=== PATIENT | male | born 1985 | race Caucasian/White ===

== ENCOUNTER 2018-08-05 14:46 | Emergency (ER) | payer OTHER ==
[2018-08-05 15:10] VITALS: BP 129/85
--- NOTE | 2018-08-05 16:25 | UC ---
General HPI - HPI Summary HPI Summary: Pt. is a 33 y.o male presenting to the requesting medication refill. Pt. states that he missed too many apts. with his PCP and was discharged from their practice. Pt. states he is currently on prozac and neurontin. Pt. states he sees a counselor at [facility]. Pt. denies SI or HI. He lives with his girlfriend and states he has a good support system. Pt. states he has about 2 days of his medications left. Pt. also states that he recently stopped taking antabuse about one month ago. Pt. states he did drink last night and is concerned he is going to go down that path again. Pt. is requesting to be restarted on antabuse. Pt. also notes he use to be a benzo for anxiety but has not taken any for a few years. Sxs are mild in severity. No current modifying factors. - History of Current Complaint Chief Complaint: UCMedRefill Stated Complaint: PRESCRIPTION REFILLS Time Seen by Provider: 08/05/18 15:33 Hx Obtained From: Patient Pain Intensity: 0 - Allergy/Home Medications Allergies/Adverse Reactions: Allergies Allergy/AdvReac Type Severity Reaction Status Date / Time cefaclor [From [facility]] Allergy Anaphylatic Verified 08/05/18 15:11 Shock Penicillins Allergy Anaphylatic Verified 08/05/18 15:11 Shock Home Medications: Home Medications Disulfiram TAB* [Antabuse 250 MG TAB*] 250 mg PO DAILY 08/05/18 [History Confirmed 08/05/18] Gabapentin CAP(*) [Neurontin 300 CAP(*)] 600 mg PO TID 08/05/18 [History Confirmed 08/05/18] PMH/Surg Hx/FS Hx/Imm Hx Previously Healthy: Yes Psychological History: Anxiety, Depression - Surgical History Surgical History: Yes Surgery Procedure, Year, and Place: [place] Teeth Extraction - Family History Known Family History: Positive: Other - noncontributory - Social History Occupation: Unemployed Lives: With Family Alcohol Use: None Substance Use Type: Marijuana Substance Use Comment - Amount & Last Used: History of using heroin, opiates Smoking Status (MU): Light Every Day Tobacco Smoker - Immunization History Most Recent Influenza Vaccination: Unsure Most Recent Tetanus Shot: Unsure Most Recent Pneumonia Vaccination: Never Review of Systems Psychological: Negative, Other - Negative SI or HI All Other Systems Reviewed And Are Negative: Yes Physical Exam Triage Information Reviewed: Yes Appearance: Well-Appearing - Pt. sittin in chair in NAD. Vital Signs: Initial Vital Signs Temp 98.4 F 08/05/18 15:06 Pulse 70 08/05/18 15:06 Resp 16 08/05/18 15:06 BP 129/85 08/05/18 15:06 Pulse Ox 100 08/05/18 15:06 Vital Signs Reviewed: Yes Eyes: Positive: Conjunctiva Clear Neck: Positive: Supple Musculoskeletal Exam: Normal Neurological Exam: Normal Psychological Exam: Normal Skin Exam: Normal Course/Dx - Course Course Of Treatment: Pt. presenting for medication refill. He denies SI or HI. Case discussed with Dr. Mendoza who agrees with week refill for prozac, gabapentin, and antabuse. To call the Clinic today to schedule close follow-up appointment for further prescriptions. To return to urgent care noted to the ER symptoms change or worsen. Patient understands and agrees with plan. - Differential Dx - Multi-Symptom Provider Diagnoses: Medication refill Discharge - Sign-Out/Discharge Documenting (check all that apply): Patient Departure All imaging exams completed and their final reports reviewed: No Studies - Discharge Plan Condition: Good Disposition: HOME Prescriptions: Disulfiram [Antabuse] 500 mg PO DAILY #7 tablet FLUoxetine CAP* [Prozac CAP*] 20 mg PO DAILY #14 cap Gabapentin 600 mg PO TID #21 tablet Patient Education Materials: Medicine Refill (ED) Referrals: [facility] [Outside] Additional Instructions: Call the [facility] today to schedule a close follow up appointment Follow up with your counselor as scheduled Medication as directed Return to UC or go to ER if symptoms change or worsen - Billing Disposition and Condition Condition: GOOD Disposition: Home
== END 2018-08-05 16:19 | disposition home or self-care (01) ==
LOC: UCEAST 14:46
DX: F41.9 Anxiety disorder, unspecified (principal); F32.9 Major depressive disorder, single episode, unspecified; Z76.0 Encounter for issue of repeat prescription; Z88.1 Allergy status to other antibiotic agents; Z88.0 Allergy status to penicillin; F17.200 Nicotine dependence, unspecified, uncomplicated
CPT/HCPCS: 99212; G0463

== ENCOUNTER 2018-08-13 05:41 | Inpatient (IN) | payer OTHER ==
--- NOTE | 2018-08-13 05:55 | ED ---
Psychiatric Complaint - HPI Summary HPI Summary: This patient is a 33 year old M brought in by EMS to [facility] accompanied by his girlfriend after he was experiencing some hallucinations. The patient is answering questions slowly and is refusing to answer some. He denies SI/HI. His girlfriend reports that at 0030 she woke up to the patient talking in the other room and when she asked who he was talking to he responded her. She simply went back to bed. Then at 0430 the patient woke up his girlfriend stating that he needed help because he was having auditory and visual hallucinations. Pt has a history of alcoholism, depression, SI, and substance abuse. He is trying to stop drinking and his last drink was a week ago. Pt is on multiple medications. - History Of Current Complaint Time Seen by Provider: 08/13/18 05:53 Hx Obtained From: Patient, Family/Recreation Attendant Supervisor - S/O Onset/Duration: Still Present Timing: Constant Severity Initially: Moderate Severity Currently: Moderate Character: Stuporous Related History: Positive For: Prior Psychiatric Issues, Admissions Related To Substance Abuse Has Suicidal: Denies: Thoughts, With A Plan Has Homicidal: Denies: Thoughts, With A Plan - Allergies/Home Medications Allergies/Adverse Reactions: Allergies Allergy/AdvReac Type Severity Reaction Status Date / Time [facility] Allergy Anaphylatic Verified 08/05/18 15:11 Shock Penicillins Allergy Anaphylatic Verified 08/05/18 15:11 Shock PMH/Surg Hx/FS Hx/Imm Hx Cardiovascular History: Denies: Hx Hypotension GI History: Reports: Other GI Disorders - Acid reflux EENT History: Denies: Hx Deafness Neurological History: Denies: Hx CVA, Hx Dementia Psychiatric History: Reports: Hx Anxiety, Hx Attention Deficit Hyperactivity Disorder, Hx Depression, Hx Panic Disorder, Hx Community Mental Health Tx, Hx Substance Abuse Denies: Hx Eating Disorder, Hx Inpatient Treatment, Hx Suicide Attempt, Hx of Violent Episodes Against Others - Surgical History Surgery Procedure, Year, and Place: [place] Teeth Extraction Infectious Disease History: Denies: Traveled Outside the [place] in Last 30 Days - Family History Known Family History: Positive: Other - noncontributory, Non-Contributory Negative: Respiratory Disease, Seizure Disorder - Social History Alcohol Use: None Substance Use Type: Reports: Marijuana Substance Use Comment - Amount & Last Used: History of using heroin, opiates Smoking Status (MU): Light Every Day Tobacco Smoker Review of Systems Negative: Fever Eyes: Other - hallucinations. Positive: Other - hallucinations. All Other Systems Reviewed And Are Negative: Yes Physical Exam - Summary Physical Exam Summary: VITAL SIGNS: Reviewed. GENERAL: Patient is a well-developed and nourished male who is lying comfortable in the stretcher. Patient is not in any acute respiratory distress. HEAD AND FACE: No signs of trauma. No ecchymosis, hematomas or skull depressions. No sinus tenderness. EYES: PERRLA, EOMI x 2, No injected conjunctiva, no nystagmus. EARS: Hearing grossly intact. Ear canals and tympanic membranes are within normal limits. MOUTH: Oropharynx within normal limits. NECK: Supple, trachea is midline, no adenopathy, no JVD, no carotid bruit, no c- spine tenderness, neck with full ROM. CHEST: Symmetric, no tenderness at palpation LUNGS: Clear to auscultation bilaterally. No wheezing or crackles. CVS: Regular rate and rhythm, S1 and S2 present, no murmurs or gallops appreciated. ABDOMEN: Soft, non-tender. No signs of distention. No rebound no guarding, and no masses palpated. Bowel sounds are normal. EXTREMITIES: FROM in all major joints, no edema, no cyanosis or clubbing. NEURO: Alert and oriented x 3. No acute neurological deficits. Speech is normal and follows commands. He answers slowly and he does not answer all questions SKIN: Dry and warm Triage Information Reviewed: Yes Vital Signs Reviewed: Yes Diagnostics - Laboratory Result Diagrams: 08/13/18 06:13 08/13/18 06:13 Lab Statement: Any lab studies that have been ordered have been reviewed, and results considered in the medical decision making process. - EKG 0558 Cardiac Rate: Tachycardia EKG Rhythm: Sinus Tachycardia - at 103 BPM Summary of EKG Findings: Normal axis. Normal interval. No ischemic changes Re-Evaluation - Re-Evaluation First Eval Re-Evaluation Time: 06:43 Comment: Pt's father is in the ED and states the patient took his 90 pills of gabapentin in the last 3 days. Course/Dx - Course Assessment/Plan: This patient is a 33 year old M brought in by EMS to [facility] accompanied by his girlfriend after he was experiencing some hallucinations. The patient is answering questions slowly and is refusing to answer some. He denies SI/HI. His girlfriend reports that at 0030 she woke up to the patient talking in the other room and when she asked who he was talking to he responded her. She simply went back to bed. Then at 0430 the patient woke up his girlfriend stating that he needed help because he was having auditory and visual hallucinations. Pt has a history of alcoholism, depression, SI, and substance abuse. He is trying to stop drinking and his last drink was a week ago. Pt is on multiple medications. An EKG reveals NSR 103. Normal axis. Normal interval. No ischemic changes. Bloodwork obtained. This patient will be signed out to Dr. Crespo awaiting toxicology and dispo. - Differential Dx/Clinical Impression Provider Diagnosis: Substance abuse Discharge - Sign-Out/Discharge Documenting (check all that apply): Sign-Out Patient Signing out patient TO: Bandar Crespo - Discharge Plan Referrals: Bandar Polanco MD [Primary Care Provider] - - Attestation Statements Document Initiated by Scribe: Yes Documenting Scribe: Avinash Clement Provider For Whom Nraayane is Documenting (Include Credential): Ariadna Milton MD Scribe Attestation: Avinash Santos, scribed for Ariadna Milton MD on 08/13/18 at 0650.
[2018-08-13] MEDS ORDERED: NS 0.9% 1000 ML* 1,000 ML IV ONE (05:58)
[2018-08-13] MEDS ORDERED: Mouth Piece, Nicotine* 1 EACH CARTRIDGE INH SCH (06:09)
[2018-08-13 06:22] LABS: ABS Basophils 0.1 10^3/ul (0-0.2); ABS Eosinophils 0.1 10^3/ul (0-0.6); ABS Lymphocytes 1.8 10^3/ul (1.0-4.8); ABS Monocytes 0.8 10^3/ul (0-0.8); ABS Neutrophils 5.2 10^3/ul (1.5-7.7); ABS Nucleated RBC 0 10^3/ul; Eosinophil % 0.9 % (0-6); Hematocrit 42 % (42-52); Hemoglobin 13.9 g/dl (14.0-18.0); Lymphocyte % 22.5 % (25-47); Mean Corpuscular HGB Conc 34 g/dl (31-36); Mean Corpuscular Hemoglobin 29 pg (27-31); Mean Corpuscular Volume 85 fL (80-94); Mean Platelet Volume 7.1 fL (7.4-10.4); Nucleated Red Blood Cells % 0.1; Platelet Count 254 10^3/ul (150-450); Red Blood Count 4.89 10^6/ul (4.00-5.40); Red Cell Distribution Width 14 % (10.5-15); White Blood Count 7.9 10^3/ul (3.5-10.8)
[2018-08-13 06:37] LABS: EGFR Non-African American 89.7 (>60)
[2018-08-13 06:49] LABS: Urine Appearance Clear; Urine Blood Negative (Negative); Urine Color Straw; Urine Ketones Negative (Negative); Urine Protein Negative (Negative); Urine Specific Gravity 1.003 (1.010-1.030); Urine Urobilinogen Negative (Negative)
--- NOTE | 2018-08-13 07:10 | ED ---
Progress - Progress Note Progress Note: This pt was signed out by Dr. Milton at shift change, pending disposition, awaiting toxicology screen. Pt is a 33 y/o male presenting to [facility] for hallucinations today. Pt states having a hard time urinating and numbness in hands. Pt also currently urine incontinent. Pt admits to taking more than prescribed Gabapentin in the past 3 days. Pt's prescription was filled on 08/08/18. Pt's father reports pt had 90 tablets of 600 mg Gabapentin within the last 3 days. Pt notes he has NOT taken any gabapentin today. Physical Exam= VITAL SIGNS: Reviewed. GENERAL: Patient is a well-developed and nourished male who is lying comfortable in the stretcher. Patient is not in any acute respiratory distress. HEAD AND FACE: No signs of trauma. No ecchymosis, hematomas or skull depressions. No sinus tenderness. EYES: PERRLA, EOMI x 2, No injected conjunctiva, no nystagmus. EARS: Hearing grossly intact. Ear canals and tympanic membranes are within normal limits. MOUTH: Oropharynx within normal limits. NECK: Supple, trachea is midline, no adenopathy, no JVD, no carotid bruit, no c- spine tenderness, neck with full ROM. CHEST: Symmetric, no tenderness at palpation LUNGS: Clear to auscultation bilaterally. No wheezing or crackles. CVS: Tachycardic rate and regular rhythm, S1 and S2 present, no murmurs or gallops appreciated. ABDOMEN: Soft, non-tender. No signs of distention. No rebound, no guarding, and no masses palpated. Bowel sounds are normal. He is urine incontinent. EXTREMITIES: FROM in all major joints, no edema, no cyanosis or clubbing. NEURO: Alert and oriented x 3. Speech is normal and follows commands. Pt with ataxia. He has movement disorder, he is slow with movement. Pt with auditory and visual hallucinations. SKIN: Dry and warm GCS: [address], as read by radiologist IMPRESSION: No acute intracranial pathology Dr. Crespo has reviewed this report. EKG at 08:49 Rate: Normal at 93 bpm Rhythm: Normal Sinus No ST elevations. Re-Evaluation - Re-Evaluation First Eval Re-Evaluation Time: 07:37 Comment: Pt reports he has visual hallucinations. He also states having a hard time urinating and numb hands. He notes he hasn't taken any gabapentin today. Pt admits to taking more than prescribed gabapentin in the past 3 days. Pt currently with urine incontinence. Course/Dx - Course Course Of Treatment: Patient is a 33-year-old male who was signed out by Dr. Milton. He reports that this patient came in with the chief complaint of altered mental status. He has auditory and visual hallucinations and the patient is aware that he is hallucinating. He also had urinary incontinence 1 today. He also has been taking gabapentin for the last 3 days but the amount is unknown. The patient is awaiting for a urinalysis and urine toxicology. Dr. Milton recommends for the patient to be admitted to the hospital services for further workup and management. Test results without any significant abnormality except for hemoglobin 13.9, glucose of 120, CPK 303 and urine toxicology positive for marijuana. Patient has past medical history significant for substance-induced mood disorder, alcohol use disorder, history of cocaine use disorder, history of opiate disorder, cannabinoids use disorder, anxiety and panic disorders. Head CT impression: No acute intracranial pathology. Discussed the case with poison control and they recommend a second EKG since the first one had a borderline QTC. Second EKG shows normal QTC. The recommend for the patient to be observed, be given magnesium sulfate indicated if QTC is more than 500, and benzodiazepines for agitation. The patient also continues to be hydrated. At this point I discussed my physical exam, findings and test results with Dr. Walker, hospitalist, who accepted the patient for admission. The patient is hemodynamically stable. - Diagnoses Provider Diagnoses: Substance abuse, Gabapentin overdose - Provider Notifications Discussed Care Of Patient With: Pita Walker - hospitalist Time Discussed With Above Provider: 09:05 Instructed by Provider To: Admit As Inpatient Discharge - Sign-Out/Discharge Documenting (check all that apply): Patient Departure - Admit to [facility], Receiving Sign-Out Receiving patient FROM: Ariadna Milton - Discharge Plan Condition: Stable Disposition: ADMITTED TO [facility] - Billing Disposition and Condition Condition: STABLE Disposition: Admitted to [facility] - Attestation Statements Document Initiated by Scribe: Yes Documenting Scribe: Teresa Downs Provider For Whom Scribe is Documenting (Include Credential): Bandar Crespo MD Scribe Attestation: ITeresa, scribed for Bandar Crespo MD on 08/13/18 at 1830. Scribe Documentation Reviewed: Yes Provider Attestation: The documentation as recorded by the scribe, Teresa Downs accurately reflects the service I personally performed and the decisions made by me, Bandar Crespo MD
[2018-08-13] MEDS ORDERED: Acetaminophen TAB* 325 MG PO PRN (11:04)
[2018-08-13] MEDS ORDERED: LORazepam INJ* 2 MG/ML 1 ML VIAL IV PUSH PRN (11:05)
[2018-08-13 11:17] LABS: ABS Basophils 0.1 10^3/ul (0-0.2); ABS Eosinophils 0 10^3/ul (0-0.6); ABS Monocytes 1.1 10^3/ul (0-0.8); ABS Neutrophils 7.7 10^3/ul (1.5-7.7); ABS Nucleated RBC 0 10^3/ul; Eosinophil % 0.4 % (0-6); Hematocrit 42 % (42-52); Hemoglobin 13.9 g/dl (14.0-18.0); Lymphocyte % 18.6 % (25-47); Mean Corpuscular HGB Conc 33 g/dl (31-36); Mean Corpuscular Hemoglobin 29 pg (27-31); Mean Corpuscular Volume 87 fL (80-94); Mean Platelet Volume 7.6 fL (7.4-10.4); Nucleated Red Blood Cells % 0.1; Platelet Count 269 10^3/ul (150-450); Red Blood Count 4.86 10^6/ul (4.00-5.40); Red Cell Distribution Width 14 % (10.5-15)
[2018-08-13 11:36] LABS: EGFR Non-African American 86.6 (>60)
[2018-08-13] MEDS: NS 0.9% 1000 ML* 1,000 ML IV SCH (12:35)
[2018-08-13] MEDS: clonazePAM TAB(*) 0.5 MG PO SCH ×2 (15:54→21:26)
--- NOTE | 2018-08-13 17:11 | HP ---
CC: Dr. Savana Neumann, [facility]; Dr. Avila; Dr. Lin * HISTORY AND PHYSICAL: DATE OF ADMISSION: 08/13/18 TIME OF EVALUATION: 10:50 a.m. CONSULTING FORENSIC CHEMIST: Dr. Avila. CONSULTING NEUROLOGIST: Dr. Lin. CHIEF COMPLAINT: "He is hallucinating" as per girlfriend. HISTORY OF PRESENT ILLNESS: Mr. Wells is a 33-year-old male with past medical history of alcohol abuse, anxiety, depressive disorder, who was brought into the emergency room by ambulance due to concerns with hallucinations and lethargy. The patient was recently seen at the [facility] on 08/08/[address] Neumann. As per her report, the patient had been discharged from Internal Medicine due to no shows. He presented to [facility] for depression and anxiety and he was on fluoxetine and gabapentin at that time and he had gotten them refilled at urgent care last week and was referred to [facility] to reestablish care. The patient also has a history of alcoholism, which has been well treated with Antabuse and as per her note, he has been sober for 2 years. On that visit, he was prescribed disulfiram, gabapentin, bupropion, clonazepam, and his fluoxetine was discontinued. On my initial conversation with the emergency room provider, the patient was described as lethargic, but able to answer questions and the only acute issue found in the ED was mild prolongation of his QT interval. By the time the patient arrived to the medical floor, he sustained what was described as a tonic seizure and clinical assessment team was called. Most of the information is obtained from his father and girlfriend at bedside. Apparently, since his visit to the [facility] on 08/08/18, the patient picked up all his medications and was taking more gabapentin than prescribed. Five days ago, he received a 90-tablet supply and per girlfriend he must have 5 or 10 left at home. The father describes that the patient was feeling "great" and he attributed that to gabapentin and kept taking more than what he was prescribed. His girlfriend states that last night around midnight she woke up and noticed that the patient who he was talking to, he answered and seemed to be okay. She woke up again at 4:30 and the patient was telling her that he needed help because he was having auditory and visual hallucinations. The patient did not require Ativan. His seizure was self-limited and he was regaining consciousness. The plan is for him to be transferred to the intensive care unit now to be seen by Dr. Avila and Dr. Lin. PAST MEDICAL HISTORY: 1. Prior history of alcohol abuse. 2. Anxiety. 3. Depressive disorder. MEDICATION LIST: 1. Wellbutrin SR 150 mg p.o. daily. 2. Clonazepam 0.25 mg p.o. t.i.d. as needed for anxiety. 3. Disulfiram 250 mg p.o. daily. 4. Gabapentin 600 mg p.o. t.i.d. ALLERGIES: The patient had anaphylaxis with CEPHALOSPORINS and PENICILLINS, CLINDAMYCIN. FAMILY HISTORY: Positive for depression and alcohol abuse. SOCIAL HISTORY: The patient is a smoker, 8 to 10 cigarettes a day. History of alcohol abuse, but he quit drinking 2 years ago. He states that he occasionally smokes marijuana, but denies smoking spice or any other drugs. The patient has lost his job a couple weeks ago as he could not contain insubordination and this has been an added stressor. Surrogate decision maker is his father, Jerry Wells, phone number is [phone]. REVIEW OF SYSTEMS: I am unable to obtain from the patient at this time due to his lethargy. PHYSICAL EXAMINATION GENERAL: The patient is a young gentleman, lying in bed, in no acute distress. VITAL SIGNS: Temperature 98.4, heart rate is 102, respiratory rate is 14, oxygen saturation 97% on room air, blood pressure is 135/90. HEENT: Pupils are equal and reactive to light. Moist mucous membranes. CHEST: Breath sounds present bilaterally with no added sounds. CVS: Normal S1, S2. Regular rate and rhythm. ABDOMEN: Soft. Bowel sounds are present. EXTREMITIES: No edema. NEURO: The patient is lethargic, but arousable to voice, oriented to self and place. He is able to move all 4 extremities. Face is symmetric. DIAGNOSTIC STUDIES/LAB DATA: The patient had a CBC that showed WBC of 7.9, hemoglobin of 13.9, hematocrit of 42, platelets of 254. Chemistry showed a sodium of 141, potassium of 3.9, chloride of 107, bicarb of 28, BUN of 14, creatinine of 0.97, glucose of 108, lactic acid of 1.2, calcium of 9.8. LFTs were normal. CPK was 303. Urinalysis was negative. Urine toxicology was positive for cannabinoids only. CT of the brain showed no acute intracranial pathology. EKG done 08/13/18 at 5:58 a.m. showed sinus tachycardia at 103 beats per minute with nonspecific intraventricular conduction delay and his QTc was 500. There is no prior EKG to compare. Subsequent EKGs showed improvement of his QTc and on the last one, his QTc was 478. ASSESSMENT AND PLAN: Mr. Wells is a 33-year-old male with past medical history of anxiety, depression, prior history of alcohol abuse, who was recently seen at the [facility] and received prescriptions of his new medications and has been taking higher doses of gabapentin over the weekend and now presents with lethargy and seizure. 1. Gabapentin toxicity. The patient's mild QT prolongation and lethargy are likely related to accidental gabapentin overdose. The original plan was to provide supportive care and monitor his QT interval and wait for his mental status to improve, but now that the patient has sustained a seizure, the plan is to have him transferred to the intensive care unit. I did contact Poison Control and they feel that the seizure is likely not related to gabapentin. As the patient is also on Wellbutrin, we think it may be related to it. As per Dr. Neumann's note, the patient has been sober for 2 years and when he is more awake, we will clarify, but at this point, he does not seem to be withdrawing from alcohol. He will be placed on neurological checks every 2 hours. He will have seizure precautions and he will have a stat EEG and will be seen in consultation by Neurology. I also requested Critical Care evaluation with Dr. Avila. For now, we are going to hold all his medications and he will need psychiatric evaluation when more stable as impulse control seems to be one of his issues. 2. DVT prophylaxis: The patient has a score of 1 on the DVT Prophylaxis Risk Assessment Guide and he will have SCDs. 3. Code status is full. TIME SPENT: Approximately 65 minutes of critical care time was spent to complete this admission, more than half of this time was spent [id number] with the patient and family and coordination of care. [id number]/[facility] #: [id number] [facility]PITALIsabel
--- NOTE | 2018-08-13 21:49 | CONS ---
CONSULTATION NOTE: DATE OF CONSULT: 08/13/18 CONSULTING PROVIDER: Pita Armas MD REASON FOR CONSULT: Seizure. CHIEF COMPLAINT: Hallucination. HISTORY OF PRESENT ILLNESS: Mr. 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 The patient presented with increased episodes of hallucination and lethargy. The patient was evaluated by Dr. Neumann on 08/08/18. The patient was diagnosed with depression and anxiety and was started on gabapentin , Wellbutrin, and clonazepam. He was taking fluoxetine but that was discontinued. According to Neetu, who is the patient's girlfriend, the patient had taken 30-day dosage of medication within 6 days. He has been averaging 6 to 10 clonazepam a day. He ran out of clonazepam last Sunday. He took all the doses of gabapentin 600 mg p.o. t.i.d. He also stated that he probably took more than 5 Wellbutrin of 150 mg p.o. daily. When questioned why he consumed these medications, the patient stated that he wanted to have a good time and not wanting to feel bad anymore. The patient also stated that he was a black-out drinker. He was hospitalized before in an inpatient facility, although I do not find these records for severe depression in the past. At approximately 11 a.m. today, Christina was not feeling well. He was getting out of bed and wanted to leave the hospital. Nurse was supporting him. The patient got upset and told the nurse to not touch him. He then calmed down, sat at the edge of the bed and had a tonic seizure-like episode that lasted for approximately 30-60 seconds. The patient was confused thereafter. The patient did not have any tongue biting or incontinence. The patient did not hit his head. The patient was then transferred to the ICU for further monitoring. Currently, the patient is complaining of hallucination. He is seeing spiders all over the room. He denied any focal weakness. He denied any headaches, other visual disturbances. He sometimes hears voices. He denied any suicidal or homicidal ideation. The patient was treated with lorazepam at 1554 for agitation. The patient was started on clonazepam at 1554 to prevent any benzodiazepine withdrawal. PAST MEDICAL HISTORY: Alcohol abuse, tobacco abuse, anxiety, depression, polysubstance abuse. PAST SURGICAL HISTORY: He has no surgeries in the past. MEDICATIONS: 1. Wellbutrin 150 mg p.o. daily. 2. Clonazepam 0.25 mg p.o. t.i.d. as needed for anxiety. 3. Disulfiram 250 mg p.o. daily. 4. Gabapentin 600 mg p.o. t.i.d. ALLERGIES: CEPHALOSPORIN, PENICILLIN, and CLINDAMYCIN. FAMILY HISTORY: Positive for depression and alcohol use. There is no family history of stroke or seizures. SOCIAL HISTORY: The patient is a smoker, 8 to 10 cigarettes a day. He lives with his girlfriend. He is unemployed. He reportedly quit drinking 2 years ago. He does smoke marijuana occasionally. The patient also recently lost his friend and is not coping very well. Carlita is his current caregiver. The patient does have a 6-year-old daughter who does not currently live with him. He enjoys playing video games, listens to audio books, and likes to read and draw. He also recently adopted a puppy. REVIEW OF SYSTEMS: A 14-point review of systems was obtained, otherwise negative except for what was mentioned in the HPI. PHYSICAL EXAM: Vital Signs: Temperature of 97.5, heart rate of 96, respiratory rate of 18, oxygen saturation 98%, blood pressure 131/88. Slightly fidgety and irritated man, in no acute distress. He is resting comfortably. He requests that his girlfriend, Carlita, should be at bedside during the evaluation and interview. Head is atraumatic and normo-cephalic. Eyes: Conjunctivae/corneas are clear. Neck is supple and symmetrical with no carotid bruit. Lungs are clear to auscultation bilaterally. Cardiovascular: Regular rate and rhythm with normal S1, S2. Extremities: Normal range of motion with no cyanosis. Skin: No skin lesions or lacerations. Psych: Flat affect, depressed mood. He denied any suicidal or homicidal ideation. Neurological Examination: Awake, alert, oriented to person, place, time, and general circumstance. He does have hesitant speech and psychomotor slowing. Cranial Nerves: Normal confrontation testing. Pupils are mid range and reactive to light, normal consensual response. Extraocular muscles are intact. No ptosis. Sensation is intact in the forehead, cheeks, and jaw region bilaterally. No facial droop. Able to hear throughout the history process. Normal strength against shoulder shrug. Tongue is symmetrical and midline with no atrophy or fasciculation. Motor: No abnormal movements or pronator drift. He has got 5/ 5 strength in the upper and lower extremities. Reflexes 2+ in the brachioradialis, biceps, triceps, patella, ankle bilaterally. Plantar flexor/ flexor. Sensation is intact to light touch throughout. Normal vibration at the toes. Coordination: Normal rwtkzp-xi-iymb and rapid alternating movement. Gait was not assessed. DIAGNOSTIC STUDIES/LAB DATA: Labs, imaging, and other diagnostic testing: WBC of 11, hemoglobin of 13.9, hematocrit of 42. Sodium 143, potassium 3.7, chloride of 106, BUN of 12, creatinine of 1. Lactic acid 8.5, decreased to 0.9. Total creatine kinase is 294. TSH 1.33. Urinalysis negative. Urine tox screen positive for cannabinoids. CT head was completed on 08/13/18 that showed no evidence of any intracranial abnormality. I personally reviewed the study. He had an EEG that showed diffuse slowing in the mild to moderate range consistent with toxic metabolic encephalopathy. ASSESSMENT AND RECOMMENDATION: Mr. Jeffery Wells is a 33-year-old man with history of reported depression, anxiety, who overdosed on gabapentin and Wellbutrin and probably is having benzodiazepine withdrawal. The patient had a tonic seizure that was witnessed by staff members, lasted for 1 minute. He is now having trouble with visual and auditory hallucination. These manifestations are all most likely related to a psychiatric illness rather than a neurological problem. Reassuringly, he has no focal neurological deficits on examination. I do recommend starting him on a low- dose benzodiazepine such as clonazepam 0.5 mg twice daily for the next 2-3 days and to slowly wean him off the clonazepam to prevent any further seizures. Another possible cause for the seizure is Wellbutrin toxicity. Gabapentin is not the cause of the seizure but most likely can cause encephalopathy and myoclonus. I spent some time educating the patient regarding medication compliance. We also discussed smoking cessation. The patient will benefit from a psychiatric evaluation and possibly evaluation for inpatient psychiatry. Continue neuro checks every 4 hours. I am not quite sure if he really needs ICU at this point as he seems to have stabilized from the seizure standpoint. The patient does not have any evidence of an electrolyte imbalance or infectious etiology that may have contributed to his seizures. I have added a magnesium and phosphorous level to his lab to rule out any possible electrolyte imbalance contributing to his seizure but I doubt that this is the case. I discussed the above recommendations with the patient, Carlita, his girlfriend, and his father at bedside. TIME SPENT: I spent a total of 70 minutes and greater than 50% was spent directly reviewing the medical chart, obtaining history, examining the patient, education and counseling, and discussing the treatment plan and prognosis as mentioned above. [id number]/[facility] #: [id number] LV
--- NOTE | 2018-08-14 05:48 | CONS ---
PULMONARY CONSULTATION REPORT: DATE OF CONSULT: 08/13/18 CONSULTATION REQUESTED BY: Pita Marquez MD REASON FOR CONSULTATION: Evaluation for seizures and gabapentin overdose. HISTORY OF PRESENT ILLNESS: The patient is 33-year-old with history of alcohol abuse, polysubstance abuse, depressive disorder, schizophrenic disorder, who presents for evaluation of hallucinations and lethargy. The patient apparently overdosed on gabapentin. The patient apparently took 30 day dosage of medication within the past 6 days. He has taken all the dose of gabapentin 600 mg p.o. t.i.d., one month dose. He also overdosed on Klonopin averaging up to 6 to 10 clonazepam a day. He also probably took more than 5 Wellbutrin of 150 mg daily dose. The patient recently was [place] [facility] [place] he presented with hallucination and lethargy. He was diagnosed with depression and anxiety and was given gabapentin, Wellbutrin and Klonopin at that time. The patient reported taking the medication for recreational purposes. The patient reported not feeling well at approximately 11 a.m. He was on the floor when he was admitted for observation. He was upset and wanted to sign out. The patient became agitated and apparently had a tonic seizure like episode that lasted 30 to 60 seconds. He was confused thereafter. No urinary incontinence or tongue biting episode. No history of head trauma. He was subsequently transferred to intensive care unit for close monitoring. I was requested to evaluate the patient for further close monitoring of seizures and altered mental status. The patient was seen and examined at bedside. The patient reports feeling foggy. He also reported hallucinations. Reported seeing spiders all over the room. Denies weakness, headache, visual disturbances. He also reported auditory hallucinations. He denies suicidal or homicidal ideations to me, however, reported suicidal ideations to bedside RN. The patient subsequently was placed on one to one observation. He has received lorazepam for agitation while on the floor. The patient was also evaluated by Neurology. EKG was obtained, which did not reveal any evidence of prolonged QT. Apparently, the first EKG in emergency room did reveal evidence of prolonged QT. PAST MEDICAL HISTORY: Alcohol abuse, tobacco abuse, anxiety and depression, polysubstance abuse. PAST SURGICAL HISTORY: No surgeries in the past. MEDICATIONS: 1. Wellbutrin 150 mg p.o. daily. 2. Clonazepam 0.25 mg p.o. t.i.d. as needed for anxiety. 3. Disulfiram 250 mg p.o. daily. 4. Gabapentin 600 mg p.o. t.i.d. ALLERGIES: CEPHALOSPORIN, PENICILLIN, CLINDAMYCIN. FAMILY HISTORY: Positive for depression and alcohol use. SOCIAL HISTORY: The patient is a smoker, smokes about 8 to 10 cigarettes per day. He lives at home with girlfriend. He is unemployed. He quit drinking 2 years ago, smokes marijuana occasionally. REVIEW OF SYSTEMS: Limited, however, attempted 14-point review of systems negative other than mentioned in HPI. PHYSICAL EXAMINATION: The patient in no apparent distress. Temperature 98.8, pulse 88 beats per minute, respiratory rate 16 per minute, O2 sat 96% on room air, blood pressure 126/83. HEENT: Pupils are equal and reactive to light. Mucous membranes are moist. Lungs: Good air entry bilaterally. No crackles or wheezes. Cardiovascular: S1, S2 present, regular. Abdomen: Soft, nontender , nondistended. Bowel sounds are present. Extremities: Normal range of motion , no edema. DIAGNOSTIC STUDIES/LAB DATA: WBC count 11; hemoglobin 13.9; hematocrit 42; platelet count 269. Sodium 143, potassium 3.7, chloride 106, bicarb 23, BUN 12 , creatinine 1.0, lactic acid 0.9, LFTs within normal limits. Urine toxicology , cannabinoids positive, salicylates and acetaminophen within normal limits, alcohol within normal limits. CT of the brain did not show any acute abnormality. EKG showed sinus tachycardia with no significant QT prolongation. IMPRESSION/RECOMMENDATIONS: A 33-year-old with history of depression, psychiatric issues, admitted after overdose of gabapentin and Wellbutrin and is probably having benzodiazepine withdrawal. He is also on Klonopin at home. No evidence of seizures since his arrival in the ICU. He has been having hallucinations. No focal neuro deficits. Monitor closely for any EKG abnormalities. Monitor closely for seizures. Seizure precautions. The patient taking Wellbutrin that might have decreased seizure threshold. Will monitor closely in ICU. Neurology consultation appreciated. He will need psychiatric consultation as outpatient. Smoking cessation education was reinforced. Thank you for allowing me to participate in the care of your patient. I have discussed recommendations with Dr. Marquez. [id number]/[facility] #: [id number] [facility]
[2018-08-14 05:58] LABS: ABS Basophils 0 10^3/ul (0-0.2); ABS Eosinophils 0.1 10^3/ul (0-0.6); ABS Lymphocytes 1.7 10^3/ul (1.0-4.8); ABS Monocytes 0.9 10^3/ul (0-0.8); ABS Neutrophils 4.7 10^3/ul (1.5-7.7); ABS Nucleated RBC 0 10^3/ul; Eosinophil % 1.2 % (0-6); Hematocrit 33 % (42-52); Hemoglobin 11.6 g/dl (14.0-18.0); Lymphocyte % 23.2 % (25-47); Mean Corpuscular HGB Conc 35 g/dl (31-36); Mean Corpuscular Hemoglobin 30 pg (27-31); Mean Corpuscular Volume 85 fL (80-94); Mean Platelet Volume 7.3 fL (7.4-10.4); Nucleated Red Blood Cells % 0.1; Platelet Count 186 10^3/ul (150-450); Red Blood Count 3.91 10^6/ul (4.00-5.40); Red Cell Distribution Width 14 % (10.5-15); White Blood Count 7.4 10^3/ul (3.5-10.8)
[2018-08-14 06:17] LABS: EGFR Non-African American 107.4 (>60)
[2018-08-14] MEDS: clonazePAM TAB(*) 0.5 MG PO SCH ×3 (10:00→20:52)
[2018-08-14] MEDS: NS 0.9% 1000 ML* 1,000 ML IV SCH (10:16)
--- NOTE | 2018-08-14 10:24 | PN ---
Subjective Date of Service: 08/14/18 Interval History: Mr. Wells feels "terrible" today. His father and a 1:1 are in the room with him. He sits up and acknowledges me when I walk into the room. He does not recognize me until I remind him that I saw him in the office last week. I explained that when I saw him, he was very appropriate and stable from a mental health standpoint and both he and his father agree that he was doing well last week. In the office I refilled the gabapentin that he has been taking from some time, and I switched his fluoxetine to bupropion due to sexual side effects. He and his father attempt to piece the story together from the weekend and figure out how this overdose occurred, but Kenny struggles to remember much and cannot recall what caused him to take extra pills. He does not believe he was trying to harm himself, but he wanted to feel better. His dad thinks he doesnt have a good "thermostat" for when to stop taking pills once he starts to feel better, especially on a PRN basis. His father does say that Kenny's daughter's birthday was over the weekend, which may have provoked extra anxiety for Kenny having to be around people and having a lot of pressure to look good. Kenny complains of some nausea but is interested in advancing his diet a little today. He otherwise physically feels well and is "not sure" about how he feels from a mental health standpoint. Objective Active Medications: Acetaminophen (Tylenol Tab*) 650 mg PO Q6H PRN PRN Reason: pain/fever Clonazepam (Klonopin Tab(*)) 0.5 mg PO TID [facility] Last Admin: 08/14/18 10:00 Dose: 0.5 mg Device (Nicotine Mouth Piece*) 1 each INH .[facility] Sodium Chloride (Ns 0.9% 1000 Ml*) 1,000 mls @ 100 mls/hr IV PER RATE [facility] Last Admin: 08/13/18 12:35 Dose: 100 mls/hr Lorazepam (Ativan Inj*) 1 mg IV PUSH Q2H PRN PRN Reason: Seizure Last Admin: 08/13/18 15:54 Dose: 1 mg Nicotine (Nicotine Inhaler*) 10 mg INH Q2H PRN PRN Reason: CRAVING Vital Signs - 8 hr 08/14/18 08/14/18 03:50 10:00 Temperature 97.5 F Pulse Rate 83 Respiratory 14 16 Rate Blood Pressure 114/74 (mmHg) O2 Sat by Pulse 98 Oximetry Oxygen Devices in Use Now: None Appearance: drowsy but alerts to voice, tired appearing Eyes: No Scleral Icterus, - - pupils are 4mm b/l Ears/Nose/Mouth/Throat: NL Teeth, Lips, Gums, - - dry mucosa Neck: NL Appearance and Movements; NL JVP Respiratory: Symmetrical Chest Expansion and Respiratory Effort, Clear to Auscultation Cardiovascular: NL Sounds; No Murmurs; No JVD, RRR Abdominal: NL Sounds; No Tenderness; No Distention Lymphatic: No Cervical Adenopathy Extremities: No Edema Skin: No Rash or Ulcers Neurological: Alert and Oriented x 3, - - no tremor, no asterixis Result Diagrams: 08/14/18 05:26 08/14/18 05:26 Microbiology and Other Data: Microbiology 08/13/18 11:00 Nasal Screen MRSA (PCR) - Final Nasal Mrsa Not Detected Assess/Plan/Problems-Billing Assessment: This is a 33 year old man with history of anxiety, depression, alcohol abuse ( sober x 2 years on antabuse) who was seen by me last week, when his gabapentin was refilled (not a new medication), and his fluoxetine was switched to bupropion due to sexual side effects of SSRI, and PRN clonazepam was prescribed. He was admitted 08/13 with hallucinations and had a seizure after admission. His UA was positive for marijuana but negative for benzos. He does not think he was taking the benzos and does not think he was drinking alcohol. - Patient Problems (1) Toxic encephalopathy Current Visit: Yes Status: Acute Code(s): G92 - TOXIC ENCEPHALOPATHY SNOMED Code(s): 11942720 Comment: Improving Likely due to gabapentin and wellbutrin overdose He denies suicidal intention, but has poor recollection of taking so many pills He is clear enough for a psychiatric evaluation (2) Gabapentin overdose Current Visit: Yes Status: Acute Code(s): T42.6X1A - POISONING BY OTH ANTIEPLPTC AND SED-HYPNTC DRUGS, ACC, INIT SNOMED Code(s): 994512626 Comment: unclear intentions, especially since he has been on gabapentin for some time need repeat EKG today no neurologic effects at this time (3) Anxiety Current Visit: No Status: Suspected Priority: High Onset Date: 06/25/15 Code(s): F41.9 - ANXIETY DISORDER, UNSPECIFIED SNOMED Code(s): 36735727 Comment: clearly given his lack of impulse control, this is a poor choice of regimen for him I appreciate recommendations for alternative meds. He will need close follow up with psych and mental health. (4) Panic disorder Current Visit: No Status: Suspected Priority: High Onset Date: 06/25/15 Code(s): F41.0 - PANIC DISORDER [EPISODIC PAROXYSMAL ANXIETY] SNOMED Code(s): 929345227 Comment: again, benzos are a poor choice for him. I explained that he will not receive them any more. (5) Seizure Current Visit: Yes Status: Acute Code(s): R56.9 - UNSPECIFIED CONVULSIONS SNOMED Code(s): 83740395 Comment: likely due to wellbutrin overdose case discussed with Dr. Lin, no indication for further neurologic work up or therapy Status and Disposition: necessitates inpatient status for ongoing cardiac monitoring for gabapentin overdose, psychiatric evaluation. OOB today and advance diet as tolerated
[2018-08-14] MEDS ORDERED: Sodium Bicarbonate 8.4%* 50 ML SYRINGE IV ONE (12:07)
[2018-08-14] MEDS ORDERED: Potassium Chloride LIQUID* 20 MEQ PACKET PO ONE (12:26)
--- NOTE | 2018-08-14 14:48 | EEG ---
ELECTROENCEPHALOGRAPHY: DATE OF STUDY: 08/13/18 ORDERED BY: Dr. Pita Armas. INDICATION: Mr. Wells is a 33-year-old man who overdosed on gabapentin, Wellbutrin, and ran out of Klonopin, who presented with increased confusion and an episode of seizure. This EEG was ordered to evaluate for epileptiform abnormalities. MEDICATIONS: 1. Tylenol. 2. Ativan. 3. Nicotine inhaler. CLINICAL STATE: Awake. REPORT: The background lacked organization with clearly defined anterior-posterior voltage and frequ ency gradients. There was an epoch where there was some discernable posterior dominant rhythm that w as poorly sustained. There was a slow posterior dominant rhythm about 7-8 Hz. The majority of the r ecording consisted of muscle artifact as well as mixed frequency delta and theta slowing. There was emergent suppressive frequency with verbal and tactile stimulation. Hyperventilation and photic stimu lation were not performed. There were no epileptiform abnormalities or electrographic seizures. CLINICAL IMPRESSION: This is an abnormal EEG due to the presence of diffuse but reactive slowing. T here were no epileptiform abnormalities or electrographic seizures. These findings are suggestive of a nonspecific [id number] diffuse encephalopathy. They can be seen in the setting of toxic met abolic encephalopathy. Clinical correlation is recommended. [id number]/[facility] #: [id number]
[2018-08-14] MEDS: Sodium Bicarbonate 8.4% IV* 75 MEQ in NS 0.45% 1000 ML BAG* 1,000 ML IV SCH ×3 (15:36→23:47)
--- NOTE | 2018-08-14 15:36 | PN ---
Hospitalist Progress Note Date of Service: 08/14/18 Earlier today, I spoke with Poison Control about Kenny's QRS today (>120) and they recommended an amp of bicarb and a bicarb drip and continuing it until his QRS narrows to <120. This afternoon, I received a call from Monae that Kenny had decided he wanted to forego psychiatric evaluation and be discharged. I went to talk to him about the danger of being discharged both from a medical standpoint and from a psychiatric standpoint. He fears being kept against his will depending on what the psychiatrist finds. I explained that I would keep him as well since he has been unable to appropriately express understanding for the reasons we're monitoring him, including ongoing cardiac monitoring and his poor insight in to the severity of his disease. A few minutes later, Monae called again and asked me to come back and reported that shortly after I left the room, Kenny pulled his IV and attempted to run out of the hospital. Security was called and brought him back to his room from the hallway. He expresses no remorse, thinks he is able to make these decisions appropriately. He has proven to me that he is unsafe to make decisions for himself. He does not have the ability to decide for himself that he will leave. Awaiting psychiatric evaluation.
[2018-08-14 16:22] LABS: EGFR Non-African American 99.1 (>60)
[2018-08-14] MEDS: Nicotine PATCH 14 MG/24 HR* PATCH TRANSDERM SCH (16:24)
[2018-08-14] MEDS: Mirtazapine TAB* 15 MG PO SCH (20:52)
[2018-08-14] MEDS: Nicotine Patch Removal NOTE PATCH OFF SCH (20:54)
--- NOTE | 2018-08-14 20:59 | CONS ---
CONSULTATION REPORT: DATE OF CONSULT: 08/14/18 ATTENDING PHYSICIAN: Dr. Savana Neumann. CONSULTING PHYSICIAN: Dr. Ric Guerrero. REASON FOR CONSULT: Gabapentin and bupropion overdose. SUBJECTIVE HISTORY: Psychiatry is asked to see this 33-year-old single white male with a dual diagnosis of polysubstance abuse and anxiety as well as depression, who was brought to the hospital by his father and girlfriend following confused hallucinating behaviors in the context of an intentional overdose on gabapentin and Wellbutrin. The patient's story is that he had missed several appointments with his outpatient providers at [facility] and was discharged from their clinic on [facility]. Thereafter , he went to the [facility] 1 week ago where he saw Dr. Savana Neumann, who continued his gabapentin treatment and discontinued Prozac in favor of Wellbutrin due to the patient's complaint of sexual side effects. The patient indicates that he was experimenting with Wellbutrin as an upper and gabapentin as an downer, although he does not have clear memory of the events leading up to the overdose. He feels that he was using these medications recreationally to get high. His father indicated that he was stressed out about having his daughter for visitation over the weekends and misused the medications because he was anxious. At anyway, the patient steadfastly denies any suicidal ideations. My understanding is that when he arrived in the hospital, he suffered seizure, likely secondary to bupropion toxicity. During this event when he was confused, he made a statement about an ex-partner in front of his current girlfriend. He is telling me at this point that earlier this afternoon, this girlfriend broke up with him because of this and other issues. He was extremely upset after this and tried to elope. I screened him for neurovegetative symptoms of depression and he endorsed poor sleep, anhedonia , guilt, decreased energy, poor concentration, although he denied appetite disturbance, psychomotor retardation or suicidal ideations. The patient at this time states that he is not in any comprehensive mental health or substance abuse treatment in the community and would like to be enrolled in these, he denies being a risk to himself or others. PSYCHIATRIC HISTORY: The patient has previous treatments with Ativan, Klonopin , Prozac, and Paxil. He states that he used to get treatment from Faisal Gonzáles, a local primary care provider, who he admits to manipulating in to prescribing him large doses of benzodiazepines. In addition, he saw the psychiatrist, Dr. Senthil Johnson, and received large amounts of Xanax; however, this clinician stopped seeing him a year and a half ago. He admits to recreational usage of benzodiazepines. He denies any history of suicide attempts, although he states that he has had suicidal ideations in the past. He indicates that he had 1 prior psychiatric hospitalization on the [facility] in 2014 for an extended panic attack. He also indicates that he used to receive treatment at [facility] sometime around 2009. He has no history of homicidal ideations. He does endorse a history of being bullied during the middle school, which coincided with his parents' divorce. He does indicate some neglect from his parents in that he was raised primarily by a nanny and felt that often his parents were not there for him. He denies any significant history of traumatic brain injury. SUBSTANCE ABUSE HISTORY: Quite extensive. He is an alcohol abuser, whose last relapse was 1 week ago. He had an additional relapse 1 month prior. He typically takes Antabuse. His longest period of sobriety was 6 months, although he cannot remember exactly when this was. He does have one rehab inpatient experience at [facility] in [place], [place], for 4 to 5 days in 2014. He has no history of DWIs or legal consequences. He states that he has been in and out of community treatment with [facility] , but has no current sponsor. He is a daily cannabis abuser. In the past, he has abused several different benzodiazepines, abused Adderall in college, has used cocaine in the past. He started using drugs as a high school student when he abused opioid pain pills and has used IV heroin at least once in 2010, but not since. MEDICAL HISTORY: Noncontributory. ALLERGIES: He is allergic to PENICILLIN and CECLOR. FAMILY HISTORY: He has a paternal grandfather with depression and alcohol abuse ; a maternal grandfather, who was a combat , who had PTSD and received electroconvulsive therapy; his mother has been treated for anxiety while his father has been treated for depression with Wellbutrin. SOCIAL HISTORY: He was born and raised as an only child in [place]. His parents when he was 14 years old. He graduated [employer] and attended 2.5 years of college at [employer] in [place], [place]. He has no history of service. He was sexually active with his girlfriend until their breakup earlier today. He denies being latter day or spiritual. 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 He is still financially supported by his mother, which he feels guilty about. He has never been , but does have a 6-year- old daughter from a previous relationship. He has no significant history of legal problems. MENTAL STATUS EXAM: The patient is a young white male with a longish hair, who is dressed in patient gown, sitting upright in bed, makes good eye contact. He is calm, cooperative, easy to establish a rapport with. Speech is fluent with a normal rate, tone, and volume. Mood is anxious with a tearful affect at times. Thought process is linear and goal directed. Thought content is significant for his desire to get in to substance abuse rehabilitation on an outpatient basis. He denies suicidal or homicidal ideations. He denies auditory or visual hallucinations. Insight and judgment appear to be fair given his willingness to get in to dual diagnosis recovery. Cognitively, he is awake and alert with what would appear to be an average intellect. DIAGNOSES: As follows: Jackson I: Major depressive disorder, recurrent, moderate; alcohol use disorder; sedative use disorder. Jackson II: Deferred. ASSESSMENT: The patient is a 33-year-old single white male with co-occurring substance abuse disorders, depression, and anxiety, who has not been receiving any definitive treatment in the community. He apparently was recreationally abusing gabapentin and Wellbutrin, although there is some indication that he was self- treating for anxiety. At any rate, the patient denies suicidal ideations and does not feel at a risk to himself or others. I did offer him voluntary hospitalization on the behavioral science unit, which he declined and there is no legal justification to hospitalize him against his will. It is clear to me that he is undertreated in the community and would benefit from referral to the [facility] here in [facility]. RECOMMENDATIONS TO PRIMARY TEAM: Given the patient's elopement attempt before he was medically cleared, I would continue one-on-one observations until he is medically safe for discharge. I would discontinue Wellbutrin and gabapentin as he has proven himself to be untrustworthy with these and they are both medications that can be abused. I would replace these with mirtazapine and I will start a trial of 15 mg p.o. q.h.s. This is the medication that is not typically associated with sexual side effects and it treats anxiety well. I will write an order also for Social Work consult, so they can get him hooked up with the [facility]. There, he can receive not only substance abuse treatment, but there is a psychiatrist, Dr. Albaro Quinn, who can continue to manage his problems with anxiety and depression. Psychiatry will follow up tomorrow, which is , 08/15/18, and can answer any questions at that time. Thank you for the interesting consult. [id number]/AMANDA #: [id number]
[2018-08-15 06:17] LABS: EGFR Non-African American 107.4 (>60)
--- NOTE | 2018-08-15 08:34 | PN ---
Subjective Date of Service: 08/15/18 Interval History: Kenny had an uneventful night. He feels a little better today than he did yesterday. He ate yesterday and felt well, no nausea. He has been walking to the bathroom with assistance and feels good. He remains with a 1:1. He denied hearing voices to Monae this morning, which he admitted to yesterday to her. He met with Dr. Guerrero today and said it went "okay." He said that Dr. Guerrero did not think that inpatient psychiatric treatment was necessary, but Kenny would like to be considered for it. After he talked with his family, he thinks it would be helpful. He wants to get better. Objective Active Medications: Acetaminophen (Tylenol Tab*) 650 mg PO Q6H PRN PRN Reason: pain/fever Clonazepam (Klonopin Tab(*)) 0.5 mg PO TID [facility] Last Admin: 08/14/18 20:52 Dose: 0.5 mg Device (Nicotine Mouth Piece*) 1 each INH .CARTRIDGE [facility] Sodium Bicarbonate 75 meq/ (Sodium Chloride) 1,075 mls @ 150 mls/hr IV Q7H [facility] Last Admin: 08/14/18 23:47 Dose: 150 mls/hr Potassium Chloride (Potassium Chloride 20 Meq/100 Ml Ivpremix*) 20 meq in 100 mls @ 50 mls/hr IV Q2H [facility] Stop: 08/15/18 12:59 Lorazepam (Ativan Inj*) 1 mg IV PUSH Q2H PRN PRN Reason: Seizure Last Admin: 08/13/18 15:54 Dose: 1 mg Mirtazapine (Remeron Tab*) 15 mg PO BEDTIME [facility] Last Admin: 08/14/18 20:52 Dose: 15 mg Nicotine (Nicotine Inhaler*) 10 mg INH Q2H PRN PRN Reason: CRAVING Nicotine (Nicotine Patch 14 Mg/24 Hr*) 1 patch TRANSDERM DAILY [facility] Last Admin: 08/14/18 16:24 Dose: 1 patch Pharmacy Profile Note (Nicotine Patch Removal Note*) 1 note PATCH OFF 2100 [facility] Last Admin: 08/14/18 20:54 Dose: 1 note Vital Signs - 8 hr 08/15/18 08/15/18 08/15/18 04:03 07:14 07:21 Temperature 97.3 F 97.6 F Pulse Rate 77 71 Respiratory 17 16 16 Rate Blood Pressure 113/55 124/63 (mmHg) O2 Sat by Pulse 98 99 Oximetry 08/15/18 07:35 Temperature Pulse Rate Respiratory 16 Rate Blood Pressure (mmHg) O2 Sat by Pulse Oximetry Oxygen Devices in Use Now: None Appearance: tired appearing, nontoxic, resting in bed calmly Eyes: No Scleral Icterus, PERRLA Ears/Nose/Mouth/Throat: NL Teeth, Lips, Gums Neck: NL Appearance and Movements; NL JVP Respiratory: Symmetrical Chest Expansion and Respiratory Effort, Clear to Auscultation Cardiovascular: NL Sounds; No Murmurs; No JVD, RRR Lymphatic: No Cervical Adenopathy Extremities: No Edema Skin: No Rash or Ulcers Neurological: Alert and Oriented x 3 Result Diagrams: 08/14/18 05:26 08/15/18 05:49 Microbiology and Other Data: Microbiology 08/13/18 11:00 Nasal Screen MRSA (PCR) - Final Nasal Mrsa Not Detected Assess/Plan/Problems-Billing Assessment: This is a 33 year old man with history of anxiety, depression, alcohol abuse ( sober x 2 years on antabuse) who was seen by me last week, when his gabapentin was refilled (not a new medication), and his fluoxetine was switched to bupropion due to sexual side effects of SSRI, and PRN clonazepam was prescribed. He was admitted 08/13 with hallucinations and had a seizure after admission. His UA was positive for marijuana but negative for benzos. He does not think he was taking the benzos and does not think he was drinking alcohol. - Patient Problems (1) Toxic encephalopathy Current Visit: Yes Status: Acute Code(s): G92 - TOXIC ENCEPHALOPATHY SNOMED Code(s): 27056742 Comment: Improving Likely due to gabapentin and wellbutrin overdose Thoughts are becoming more clear daily (2) Gabapentin overdose Current Visit: Yes Status: Acute Code(s): T42.6X1A - POISONING BY OTH ANTIEPLPTC AND SED-HYPNTC DRUGS, ACC, INIT SNOMED Code(s): 116037137 Comment: unclear intentions, especially since he has been on gabapentin for some time continues to have a prolonged QRS continue Sodium Bicarb IV until QRS <120 recheck VBG and electrolytes later today (3) Anxiety Current Visit: No Status: Suspected Priority: High Onset Date: 06/25/15 Code(s): F41.9 - ANXIETY DISORDER, UNSPECIFIED SNOMED Code(s): 89584509 Comment: clearly given his lack of impulse control, this is a poor choice of regimen for him Dr. Guerrero started mirtazapine yesterday. He will need close follow up with psych and mental health, and Dr. Guerrero is referring him. (4) Panic disorder Current Visit: No Status: Suspected Priority: High Onset Date: 06/25/15 Code(s): F41.0 - PANIC DISORDER [EPISODIC PAROXYSMAL ANXIETY] SNOMED Code(s): 089662738 Comment: again, benzos are a poor choice for him. I explained that he will not receive them any more. (5) Seizure Current Visit: Yes Status: Acute Code(s): R56.9 - UNSPECIFIED CONVULSIONS SNOMED Code(s): 56382530 Comment: likely due to wellbutrin overdose case discussed with Dr. Lin, no indication for further neurologic work up or therapy Status and Disposition: necessitates inpatient status for ongoing cardiac monitoring for gabapentin overdose, psychiatric evaluation. OOB today and advance diet as tolerated
[2018-08-15] MEDS: KCL 20 MEQ/100 ML IVPREMIX* 20 MEQ/100 ML BAG IV SCH ×2 (08:53→12:46)
[2018-08-15] MEDS: Sodium Bicarbonate 8.4% IV* 75 MEQ in NS 0.45% 1000 ML BAG* 1,000 ML IV SCH ×3 (08:53→17:55)
[2018-08-15] MEDS: Nicotine PATCH 14 MG/24 HR* PATCH TRANSDERM SCH (08:54)
[2018-08-15] MEDS: clonazePAM TAB(*) 0.5 MG PO SCH ×3 (08:54→21:29)
--- NOTE | 2018-08-15 11:13 | PN ---
Subjective - Subjective Date of Service: 08/15/18 Service Type: 27717 Hosp care 25 min moderate complexity Subjective: Patient lying in hospital bed, sits up and is pleasant upon approach. He reports "feeling pretty ok today... clonazepam always helps with that." He endorses depressed mood and states "my mental state has been deteriorating for a long time." He goes on to discuss this as rationale for abusing alcohol and other substances. He states he has been seeking outpatient treatment at [facility] but was disappointed in therapists' availability. He identifies desire to resolve anger and "deep seeded resentment against authority" since childhood. He states desire to begin MH and substance use treatment on the [facility]. He denies need for inpatient substance use treatment and states preference for referral to outpatient [facility] treatment. He denies SI, HI or . Objective - Appearance Appearance: Well Developed/Nourished Dysmorphic Features: Yes Hygiene: Normal Grooming: Disheveled - Behavior Psychomotor Activities: Normal Exhibits Abnormal Movement: No - Attitude and Relatedness Attitude and Relatedness: Cooperative Eye Contact: Good - Speech Quality: Unpressured Latencies: Normal Quantity: Appropriate - Mood Patient's Decription of Mood: "Okay" - Affect Observed Affect: Depressed Affect Consistent with: Dysphoria - Thought Process Patient's Thought Process: Circumstantial, Impoverished Thought Content: Yes Passive Wish, No Suicidal Planning, No Homicidal Ideation, No Paranoid Ideation - Sensorium Experiencing Hallucinations: No, Sensorium is Clear Type of Hallucinations: Visual: No, Auditory: No, Command: No - Level of Consciousness Level of Consciousness: Alert Orientation: Yes Intact, Yes Orientated to Time, Yes Orientated to Place, Yes Orientated to Person - Impulse Control Impulse Control: Impaired - Insight and Judgement Insight and Judgement: Impaired Assessment - Assessment Merits Inpatient Hospitalization: For Immediate Safety, For Stabilization Plan - Plan Treatment Plan: Name: GIGI EDDY Birthdate: 1985 [id number] continue medical stabilization with 1:1 observation due to impulsivity. Patient currently lacks capacity to make reasonable decisions. consider transfer to [facility] on voluntary status after medically stabilized. continue mirtazapine and taper of benzodiazepine. Continued Medication Management: Start Medication Medications: Current Medications Acetaminophen (Tylenol Tab*) 650 mg PO Q6H PRN PRN Reason: pain/fever Clonazepam (Klonopin Tab(*)) 0.5 mg PO TID [facility] Last Admin: 08/15/18 08:54 Dose: 0.5 mg Device (Nicotine Mouth Piece*) 1 each INH .CARTRIDGE [facility] Sodium Bicarbonate 75 meq/ (Sodium Chloride) 1,075 mls @ 150 mls/hr IV Q7H [facility] Last Admin: 08/15/18 09:36 Dose: Not Given Potassium Chloride (Potassium Chloride 20 Meq/100 Ml Ivpremix*) 20 meq in 100 mls @ 50 mls/hr IV Q2H [facility] Stop: 08/15/18 12:59 Last Admin: 08/15/18 08:53 Dose: 50 mls/hr Lorazepam (Ativan Inj*) 1 mg IV PUSH Q2H PRN PRN Reason: Seizure Last Admin: 08/13/18 15:54 Dose: 1 mg Mirtazapine (Remeron Tab*) 15 mg PO BEDTIME [facility] Last Admin: 08/14/18 20:52 Dose: 15 mg Nicotine (Nicotine Inhaler*) 10 mg INH Q2H PRN PRN Reason: CRAVING Nicotine (Nicotine Patch 14 Mg/24 Hr*) 1 patch TRANSDERM DAILY [facility] Last Admin: 08/15/18 08:54 Dose: 1 patch Pharmacy Profile Note (Nicotine Patch Removal Note*) 1 note PATCH OFF 2100 [facility] Last Admin: 08/14/18 20:54 Dose: 1 note - Discharge Plan Discharge Plan: Inpatient Hospitalization
[2018-08-15 11:32] LABS: EGFR Non-African American 105.9 (>60)
[2018-08-15] MEDS: Mirtazapine TAB* 15 MG PO SCH (21:29)
[2018-08-15] MEDS: Nicotine Patch Removal NOTE PATCH OFF SCH (21:29)
[2018-08-16 07:37] LABS: ABS Basophils 0 10^3/ul (0-0.2); ABS Eosinophils 0.1 10^3/ul (0-0.6); ABS Lymphocytes 1.2 10^3/ul (1.0-4.8); ABS Neutrophils 3.9 10^3/ul (1.5-7.7); ABS Nucleated RBC 0 10^3/ul; Eosinophil % 1.6 % (0-6); Hematocrit 38 % (42-52); Hemoglobin 12.8 g/dl (14.0-18.0); Lymphocyte % 18.9 % (25-47); Mean Corpuscular HGB Conc 34 g/dl (31-36); Mean Corpuscular Hemoglobin 29 pg (27-31); Mean Corpuscular Volume 84 fL (80-94); Mean Platelet Volume 6.7 fL (7.4-10.4); Nucleated Red Blood Cells % 0.1; Platelet Count 208 10^3/ul (150-450); Red Cell Distribution Width 14 % (10.5-15); White Blood Count 6.3 10^3/ul (3.5-10.8)
[2018-08-16 07:53] LABS: EGFR Non-African American 82.8 (>60)
[2018-08-16] MEDS: clonazePAM TAB(*) 0.5 MG PO SCH ×2 (08:54→21:05)
[2018-08-16] MEDS: Nicotine PATCH 14 MG/24 HR* PATCH TRANSDERM SCH (08:54)
--- NOTE | 2018-08-16 15:27 | PN ---
Subjective - Subjective Date of Service: 08/16/18 Service Type: 06658 Hosp care 35 min high complexity Subjective: Jeffery has been transferred down to the [facility] and states that he's taking some time to adjust to the unit and figure out what he wants to get out of this experience. He denies SI but describes himself as a desperately unhappy and angry person. "I just don't know myself all that well." He talks about his history of failed short term jobs, educational experiences and relationships and associated tendencies to lose interest and feel like life is not meeting his expectations. He acknowledges that he was sent to special schools all his childhood by his workaholic, somewhat unavailable parents, who did not like each other, and was made to feel that he was special himself and that he needed to do something great with his life. He reports ongoing feelings of depression , anxiety and shame about how his life has turned out. He describes his social relationships as numerous but superficial. He has not officially broken up with his most recent girlfriend, but is ambivalent about staying in a relationship with her until he can work his own issues out more. He is not interested in inpatient rehab following hospitalization but would welcome outpatient drug and alcohol treatment. Objective - Appearance Appearance: Well Developed/Nourished Dysmorphic Features: No Hygiene: Normal Grooming: Well Kept - Behavior Psychomotor Activities: Normal Exhibits Abnormal Movement: No - Attitude and Relatedness Attitude and Relatedness: Cooperative Eye Contact: Good - Speech Quality: Unpressured Latencies: Normal Quantity: Appropriate - Mood Patient's Decription of Mood: "Anxious" - Affect Observed Affect: Constricted Affect Consistent with: Dysphoria - Thought Process Patient's Thought Process: Coherent Thought Content: No Passive Wish, No Suicidal Planning, No Homicidal Ideation, No Paranoid Ideation - Sensorium Experiencing Hallucinations: No, Sensorium is Clear Type of Hallucinations: Visual: No, Auditory: No, Command: No - Level of Consciousness Level of Consciousness: Alert Orientation: Yes Intact, Yes Orientated to Time, Yes Orientated to Place, Yes Orientated to Person - Impulse Control Impulse Control: Tenuous - Insight and Judgement Insight and Judgement: Fair - Group Participation Particating in Group Activities: Yes - Medication Management Medication Management Adherence: Yes Assessment - Assessment Merits Inpatient Hospitalization: For Immediate Safety, For Stabilization Inpatient DSM-V Dx: F33.2 Clinical Impression: 33 y.o. single, unemployed white male with an extensive history of substance misuse (benzodiazepines/alcohol/opioids/stimulants), anxiety and depression transferred from the medical floor where he was medically stabilized following an intentional overdose on prescribed gabapentin and bupropion. MHU: Problem List - Patient Problems (1) Major depressive disorder, recurrent episode Current Visit: Yes Status: Acute Priority: High Code(s): F33.9 - MAJOR DEPRESSIVE DISORDER, RECURRENT, UNSPECIFIED SNOMED Code(s): 398581136 Plan - Plan Treatment Plan: Name: JEFFERY EDDY Birthdate: 1985 [id number] We have discontinued bupropion and gabapentin therapies and started a trial of mirtazapine 15mg PO qhs. Will continue inpatient treatment, now on the unit , on a voluntary basis. Continued Medication Management: Start Medication Medications: Current Medications Acetaminophen (Tylenol Tab*) 650 mg PO Q6H PRN PRN Reason: pain/fever Clonazepam (Klonopin Tab(*)) 0.5 mg PO BID [facility] Last Admin: 08/16/18 08:54 Dose: 0.5 mg Device (Nicotine Mouth Piece*) 1 each INH .CARTRIDGE [facility] Mirtazapine (Remeron Tab*) 15 mg PO BEDTIME [facility] Last Admin: 08/15/18 21:29 Dose: 15 mg Nicotine (Nicotine Inhaler*) 10 mg INH Q2H PRN PRN Reason: CRAVING Nicotine (Nicotine Patch 14 Mg/24 Hr*) 1 patch TRANSDERM DAILY [facility] Last Admin: 08/16/18 08:54 Dose: 1 patch Pharmacy Profile Note (Nicotine Patch Removal Note*) 1 note PATCH OFF 2100 [facility] Last Admin: 08/15/18 21:29 Dose: 1 note - Discharge Plan Discharge Plan: Inpatient Hospitalization
--- NOTE | 2018-08-16 16:36 | PN ---
Subjective Date of Service: 08/16/18 Interval History: Patient offers no complaint today except continued anxiety and a desire to pursue inpatient psychiatric admission. Family History: Unchanged from Admission Social History: Unchanged from Admission Past Medical History: Unchanged from Admission Objective Active Medications: Acetaminophen (Tylenol Tab*) 650 mg PO Q6H PRN PRN Reason: pain/fever Clonazepam (Klonopin Tab(*)) 0.5 mg PO BID [facility] Last Admin: 08/16/18 08:54 Dose: 0.5 mg Device (Nicotine Mouth Piece*) 1 each INH .[facility] Mirtazapine (Remeron Tab*) 15 mg PO BEDTIME [facility] Last Admin: 08/15/18 21:29 Dose: 15 mg Nicotine (Nicotine Inhaler*) 10 mg INH Q2H PRN PRN Reason: CRAVING Nicotine (Nicotine Patch 14 Mg/24 Hr*) 1 patch TRANSDERM DAILY [facility] Last Admin: 08/16/18 08:54 Dose: 1 patch Pharmacy Profile Note (Nicotine Patch Removal Note*) 1 note PATCH OFF 2100 [facility] Last Admin: 08/15/18 21:29 Dose: 1 note Vital Signs - 8 hr 08/16/18 08/16/18 08/16/18 08:54 12:35 13:15 Temperature 97.2 F Pulse Rate 72 Respiratory 16 18 15 Rate Blood Pressure 131/93 (mmHg) O2 Sat by Pulse 100 Oximetry 08/16/18 13:37 Temperature 97.2 F Pulse Rate 72 Respiratory 15 Rate Blood Pressure 131/93 (mmHg) O2 Sat by Pulse 100 Oximetry Oxygen Devices in Use Now: None Appearance: Patient is a 33yo male who appears stated age and is sitting in the bed in [facility]. Eyes: No Scleral Icterus, PERRLA Ears/Nose/Mouth/Throat: NL Teeth, Lips, Gums, Clear Oropharnyx, Mucous Membranes Moist Neck: NL Appearance and Movements; NL JVP, Trachea Midline Respiratory: Symmetrical Chest Expansion and Respiratory Effort, Clear to Auscultation Cardiovascular: NL Sounds; No Murmurs; No JVD, RRR, No Edema Abdominal: NL Sounds; No Tenderness; No Distention, No Hepatosplenomegaly Lymphatic: No Cervical Adenopathy Extremities: No Edema, No Clubbing, Cyanosis Skin: No Rash or Ulcers, No Nodules or Sclerosis Neurological: Alert and Oriented x 3, NL Sensation, NL Muscle Strength and Tone , - Result Diagrams: 08/16/18 07:25 08/16/18 07:25 Microbiology and Other Data: Microbiology 08/13/18 11:00 Nasal Screen MRSA (PCR) - Final Nasal Mrsa Not Detected Assess/Plan/Problems-Billing Assessment: This is a 33 year old man with history of anxiety, depression, alcohol abuse ( sober x 2 years on antabuse) who was seen by me last week, when his gabapentin was refilled (not a new medication), and his fluoxetine was switched to bupropion due to sexual side effects of SSRI, and PRN clonazepam was prescribed. He was admitted 08/13 with hallucinations and had a seizure after admission. His UA was positive for marijuana but negative for benzos. He does not think he was taking the benzos and does not think he was drinking alcohol. Patient is medically cleared and will be transferred to inpatient psychiatric treatment. - Patient Problems (1) Gabapentin overdose Current Visit: Yes Status: Acute Code(s): T42.6X1A - POISONING BY OTH ANTIEPLPTC AND SED-HYPNTC DRUGS, ACC, INIT SNOMED Code(s): 673901633 Comment: - Unclear intentions, especially since he has been on gabapentin for some time - QRS<120ms - OK to transfer to inpatient psych. (2) Seizure Current Visit: Yes Status: Acute Code(s): R56.9 - UNSPECIFIED CONVULSIONS SNOMED Code(s): 43363659 Comment: - Likely due to wellbutrin overdose - No recurrence. (3) Toxic encephalopathy Current Visit: Yes Status: Acute Code(s): G92 - TOXIC ENCEPHALOPATHY SNOMED Code(s): 49873724 Comment: -Improved -Likely due to gabapentin and wellbutrin overdose Status and Disposition: To Inpatient Psych
[2018-08-16] MEDS: Nicotine Inhaler* 10 MG AMP INH PRN (19:53)
[2018-08-16] MEDS: Nicotine Patch Removal NOTE PATCH OFF SCH (21:04)
[2018-08-16] MEDS: Mirtazapine TAB* 15 MG PO SCH (21:05)
[2018-08-17] MEDS: clonazePAM TAB(*) 0.5 MG PO SCH ×2 (09:11→21:26)
[2018-08-17] MEDS: Nicotine PATCH 14 MG/24 HR* PATCH TRANSDERM SCH (09:11)
--- NOTE | 2018-08-17 14:34 | PN ---
Subjective - Subjective Date of Service: 08/17/18 Service Type: 29928 Hosp care 15 min low complexity Subjective: Jeffery is doing well today and slept great last night with the help of mirtazapine. He was visited this afternoon by his girlfriend, Carlita, and they are mutually working on their relationship issues. He continues to deny SI. Objective - Appearance Appearance: Well Developed/Nourished Dysmorphic Features: No Hygiene: Normal Grooming: Well Kept - Behavior Psychomotor Activities: Normal Exhibits Abnormal Movement: No - Attitude and Relatedness Attitude and Relatedness: Cooperative Eye Contact: Good - Speech Quality: Unpressured Latencies: Normal Quantity: Appropriate - Mood Patient's Decription of Mood: "Good" - Affect Observed Affect: Fair Affect Consistent with: Euthymia - Thought Process Patient's Thought Process: Coherent Thought Content: No Passive Wish, No Suicidal Planning, No Homicidal Ideation, No Paranoid Ideation - Sensorium Experiencing Hallucinations: No, Sensorium is Clear Type of Hallucinations: Visual: No, Auditory: No, Command: No - Level of Consciousness Level of Consciousness: Alert Orientation: No Intact, No Orientated to Time, No Orientated to Place, No Orientated to Person - Impulse Control Impulse Control: Intact - Insight and Judgement Insight and Judgement: Good - Group Participation Particating in Group Activities: Yes - Medication Management Medication Management Adherence: Yes Assessment - Assessment Merits Inpatient Hospitalization: Consolidate Improvements, Pending Safe DC Plan Inpatient DSM-V Dx: F33.2 Clinical Impression: 33 y.o. single, unemployed white male with an extensive history of substance misuse (benzodiazepines/alcohol/opioids/stimulants), anxiety and depression transferred from the medical floor where he was medically stabilized following an intentional overdose on prescribed gabapentin and bupropion. MHU: Problem List - Patient Problems (1) Major depressive disorder, recurrent episode Current Visit: Yes Status: Acute Priority: High Code(s): F33.9 - MAJOR DEPRESSIVE DISORDER, RECURRENT, UNSPECIFIED SNOMED Code(s): 380699609 Plan - Plan Treatment Plan: Name: JEFFERY EDDY Birthdate: 1985 [id number] We have discontinued bupropion and gabapentin therapies and started a trial of mirtazapine 15mg PO qhs. Will continue inpatient treatment on a voluntary basis. Continued Medication Management: Start Medication Medications: Current Medications Acetaminophen (Tylenol Tab*) 650 mg PO Q6H PRN PRN Reason: pain/fever Clonazepam (Klonopin Tab(*)) 0.5 mg PO BID [facility] Last Admin: 08/17/18 09:11 Dose: 0.5 mg Device (Nicotine Mouth Piece*) 1 each INH .[facility] Mirtazapine (Remeron Tab*) 15 mg PO BEDTIME [facility] Last Admin: 08/16/18 21:05 Dose: 15 mg Nicotine (Nicotine Inhaler*) 10 mg INH Q2H PRN PRN Reason: CRAVING Last Admin: 08/16/18 19:53 Dose: 10 mg Nicotine (Nicotine Patch 14 Mg/24 Hr*) 1 patch TRANSDERM DAILY [facility] Last Admin: 08/17/18 09:11 Dose: 1 patch Pharmacy Profile Note (Nicotine Patch Removal Note*) 1 note PATCH OFF 2100 [facility] Last Admin: 08/16/18 21:04 Dose: 1 note - Discharge Plan Discharge Plan: Drug/Alcohol Rehab Outpatient Program: [facility]
[2018-08-17] MEDS: Mirtazapine TAB* 15 MG PO SCH (21:26)
[2018-08-17] MEDS: Nicotine Patch Removal NOTE PATCH OFF SCH (21:27)
[2018-08-18] MEDS: Nicotine PATCH 14 MG/24 HR* PATCH TRANSDERM SCH (09:03)
[2018-08-18] MEDS: clonazePAM TAB(*) 0.5 MG PO SCH ×2 (09:03→20:48)
[2018-08-18] MEDS: Nicotine Inhaler* 10 MG AMP INH PRN (09:03)
[2018-08-18] MEDS: Nicotine Patch Removal NOTE PATCH OFF SCH (20:48)
[2018-08-18] MEDS: Mirtazapine TAB* 15 MG PO SCH (20:49)
[2018-08-19] MEDS: Nicotine PATCH 14 MG/24 HR* PATCH TRANSDERM SCH (09:18)
[2018-08-19] MEDS: clonazePAM TAB(*) 0.5 MG PO SCH ×2 (09:19→20:53)
[2018-08-19] MEDS: Nicotine Inhaler* 10 MG AMP INH PRN (10:28)
--- NOTE | 2018-08-19 14:57 | PN ---
Subjective - Subjective Date of Service: 08/19/18 Service Type: 45829 Hosp care 35 min high complexity Subjective: Jeffery talks at length about his anger and dissatisfaction with life, feeling like the human race is inherently flawed and dangerous and that the human condition is pathetic. He feels as though having a child, which he reports was unintentional and the result of the child's mother being dishonest about being on oral contraceptives, forces him to have to care about life, although his impulse is to negate it and to use substances in order to withdraw from it. The patient remains quite depressed. His girlfriend, Carlita, brings in a note she found at home which is essentially a suicide note written to his 6 y.o. daughter. The patient insists that this was written 2 months ago in a similar fit of depression. He denies SI today and has consistently done so throughout this hospitalization. We discussed what it would take for him to improve and feel better and he acknowledges that, to some extent, this would involve him getting over being right and making other people wrong. Objective - Appearance Appearance: Well Developed/Nourished Dysmorphic Features: No Hygiene: Normal Grooming: Well Kept - Behavior Psychomotor Activities: Normal Exhibits Abnormal Movement: No - Attitude and Relatedness Attitude and Relatedness: Cooperative Eye Contact: Poor - Speech Quality: Unpressured Latencies: Normal Quantity: Appropriate - Mood Patient's Decription of Mood: "Sad" - Affect Observed Affect: Constricted Affect Consistent with: Dysphoria - Thought Process Patient's Thought Process: Coherent Thought Content: No Passive Wish, No Suicidal Planning, No Homicidal Ideation, No Paranoid Ideation - Sensorium Experiencing Hallucinations: No, Sensorium is Clear Type of Hallucinations: Visual: No, Auditory: No, Command: No - Level of Consciousness Level of Consciousness: Alert Orientation: Yes Intact, Yes Orientated to Time, Yes Orientated to Place, Yes Orientated to Person - Impulse Control Impulse Control: Tenuous - Insight and Judgement Insight and Judgement: Fair - Group Participation Particating in Group Activities: Yes - Medication Management Medication Management Adherence: Yes Assessment - Assessment Merits Inpatient Hospitalization: For Immediate Safety, For Stabilization Inpatient DSM-V Dx: F33.2 Clinical Impression: 33 y.o. single, unemployed white male with an extensive history of substance misuse (benzodiazepines/alcohol/opioids/stimulants), anxiety and depression transferred from the medical floor where he was medically stabilized following an intentional overdose on prescribed gabapentin and bupropion. MHU: Problem List - Patient Problems (1) Major depressive disorder, recurrent episode Current Visit: Yes Status: Acute Priority: High Code(s): F33.9 - MAJOR DEPRESSIVE DISORDER, RECURRENT, UNSPECIFIED SNOMED Code(s): 175270922 Plan - Plan Treatment Plan: Name: JEFFERY EDDY Birthdate: 1985 [id number] We have discontinued bupropion and gabapentin therapies and started a trial of mirtazapine 15mg PO qhs. Will continue inpatient treatment on a voluntary basis. He will require mental health and substance abuse follow up in the community after discharge. Continued Medication Management: Start Medication Medications: Current Medications Acetaminophen (Tylenol Tab*) 650 mg PO Q6H PRN PRN Reason: pain/fever Clonazepam (Klonopin Tab(*)) 0.5 mg PO BID [facility] Last Admin: 08/19/18 09:19 Dose: 0.5 mg Device (Nicotine Mouth Piece*) 1 each INH .[facility] Mirtazapine (Remeron Tab*) 15 mg PO BEDTIME [facility] Last Admin: 08/18/18 20:49 Dose: 15 mg Nicotine (Nicotine Inhaler*) 10 mg INH Q2H PRN PRN Reason: CRAVING Last Admin: 08/19/18 10:28 Dose: 10 mg Nicotine (Nicotine Patch 14 Mg/24 Hr*) 1 patch TRANSDERM DAILY [facility] Last Admin: 08/19/18 09:18 Dose: 1 patch Pharmacy Profile Note (Nicotine Patch Removal Note*) 1 note PATCH OFF 2100 [facility] Last Admin: 08/18/18 20:48 Dose: 1 note - Discharge Plan Discharge Plan: Inpatient Hospitalization
[2018-08-19] MEDS: Mirtazapine TAB* 15 MG PO SCH (20:53)
[2018-08-19] MEDS: Nicotine Patch Removal NOTE PATCH OFF SCH (20:55)
[2018-08-20] MEDS: Nicotine PATCH 14 MG/24 HR* PATCH TRANSDERM SCH (08:48)
[2018-08-20] MEDS: clonazePAM TAB(*) 0.5 MG PO SCH (08:49)
[2018-08-20] MEDS: Nicotine Inhaler* 10 MG AMP INH PRN (08:50)
[2018-08-20] MEDS ORDERED: hydrOXYzine HCL TAB* 50 MG PO PRN (13:37)
[2018-08-20] MEDS ORDERED: clonazePAM TAB(*) 0.5 MG PO PRN (13:38)
--- NOTE | 2018-08-20 13:43 | PN ---
Subjective - Subjective Date of Service: 08/20/18 Service Type: [id number] Hosp care 25 min moderate complexity Subjective: Jeffery feels better today; less depressed and more hopeful about the future. He mentions that he's even started thinking about going back to school and becoming a psychiatric nurse. He continues to deny SI and is optimistic about discharge home tomorrow. His plan for the holiday weekend is to spend Thanksgiving at his father's and have his daughter stay with him this weekend. He is tolerating his medications well and reports significant improvements in sleep with mirtazapine. Objective - Appearance Appearance: Well Developed/Nourished Dysmorphic Features: No Hygiene: Normal Grooming: Well Kept - Behavior Psychomotor Activities: Normal Exhibits Abnormal Movement: No - Attitude and Relatedness Attitude and Relatedness: Cooperative Eye Contact: Good - Speech Quality: Unpressured Latencies: Normal Quantity: Appropriate - Mood Patient's Decription of Mood: "Good" - Affect Observed Affect: Good Affect Consistent with: Euthymia - Thought Process Patient's Thought Process: Coherent Thought Content: No Passive Wish, No Suicidal Planning, No Homicidal Ideation, No Paranoid Ideation - Sensorium Experiencing Hallucinations: No, Sensorium is Clear Type of Hallucinations: Visual: No, Auditory: No, Command: No - Level of Consciousness Level of Consciousness: Alert Orientation: Yes Intact, Yes Orientated to Time, Yes Orientated to Place, Yes Orientated to Person - Impulse Control Impulse Control: Tenuous - Insight and Judgement Insight and Judgement: Fair - Group Participation Particating in Group Activities: Yes - Medication Management Medication Management Adherence: Yes Assessment - Assessment Merits Inpatient Hospitalization: Consolidate Improvements, Pending Safe DC Plan Inpatient DSM-V Dx: F33.2 Clinical Impression: 33 y.o. single, unemployed white male with an extensive history of substance misuse (benzodiazepines/alcohol/opioids/stimulants), anxiety and depression transferred from the medical floor where he was medically stabilized following an intentional overdose on prescribed gabapentin and bupropion. MHU: Problem List - Patient Problems (1) Major depressive disorder, recurrent episode Current Visit: Yes Status: Acute Priority: High Code(s): F33.9 - MAJOR DEPRESSIVE DISORDER, RECURRENT, UNSPECIFIED SNOMED Code(s): 103367006 Plan - Plan Treatment Plan: Name: JEFFERY EDDY Birthdate: 1985 [id number] We have discontinued bupropion and gabapentin therapies and started a trial of mirtazapine 15mg PO qhs. Will target tomorrow, August 21, for discharge home. He will require mental health and substance abuse follow up in the community thereafter. Continued Medication Management: Different Medication Medications: Current Medications Acetaminophen (Tylenol Tab*) 650 mg PO Q6H PRN PRN Reason: pain/fever Clonazepam (Klonopin Tab(*)) 0.5 mg PO BID [facility] Last Admin: 08/20/18 08:49 Dose: 0.5 mg Device (Nicotine Mouth Piece*) 1 each INH .[facility]TRID[facility] Mirtazapine (Remeron Tab*) 15 mg PO BEDTIME [facility] Last Admin: 08/19/18 20:53 Dose: 15 mg Nicotine (Nicotine Inhaler*) 10 mg INH Q2H PRN PRN Reason: CRAVING Last Admin: 08/20/18 08:50 Dose: 10 mg Nicotine (Nicotine Patch 14 Mg/24 Hr*) 1 patch TRANSDERM DAILY [facility] Last Admin: 08/20/18 08:48 Dose: 1 patch Pharmacy Profile Note (Nicotine Patch Removal Note*) 1 note PATCH OFF 2100 [facility] Last Admin: 08/19/18 20:55 Dose: 1 note - Discharge Plan Discharge Plan: Outpatient Follow Up Outpatient Program: [facility]
[2018-08-20] MEDS: Mirtazapine TAB* 15 MG PO SCH (20:34)
[2018-08-20] MEDS: Nicotine Patch Removal NOTE PATCH OFF SCH (20:35)
[2018-08-21 09:11] VITALS: BP 122/80
[2018-08-21] MEDS: Nicotine PATCH 14 MG/24 HR* PATCH TRANSDERM SCH (10:33)
--- NOTE | 2018-08-22 02:29 | DS ---
DISCHARGE SUMMARY: DATE OF ADMISSION: 08/13/18 DATE OF DISCHARGE: 08/21/18 DISCHARGE DIAGNOSES: [place] I: 1. Major depressive disorder, recurrent, severe without psychotic features. 2. Alcohol use disorder. 3. Sedative use disorder. [place] II: Deferred. [place] III: Status post overdose on gabapentin and bupropion. CONDITION AT THE TIME OF DISCHARGE: Improved. The patient continues to deny any suicidal ideations. He is not craving drugs or alcohol. He is fut ure oriented stating that he would like to get back into college, perhaps at [employer] and he would like to pursue a career perhaps in psychiatric nursing. His plan is to spend the weekend with his father, koki is girlfriend and his daughter and he will be abstaining from substances of abuse. He will be attend ing daily AA meetings in the community. The patient has been safe on all checks. He appears to have had a marked improvement in his insight. He demonstrates willingness to receive treatment in the [facility] setting both for substance abuse and for mental health difficulties. At this time, he has d one well on the unit and is appropriately requesting discharge. We see no barriers to his successful treatment in the outpatient setting. MENTAL STATUS EXAMINATION: At the time of discharge, the patient is a young white male with longish graying hair, who is dressed in a long sleeve zipped up sweatshirt, sitting upright on the couch, janice ing good eye contact. He is calm cooperative, easy to establish a rapport with. Speech is fluent wi th a normal rate, tone, and volume. Mood is euthymic with full affect. Thought process is linear an d goal directed. Thought content is significant for his desire to be discharged from the hospital. He denies suicidal or homicidal ideations. He denies auditory or visual hallucinations. Insight and judgment appear to be fair given his willingness to receive treatment in the outpatient setting. Co gnitively, he is awake and alert with what would appear to be a high average intellect by virtue of h is vocabulary. DISCHARGE INSTRUCTIONS TO THE PATIENT: A. Medications: He takes mirtazapine 15 mg p.o. q.h.s. He t akes hydroxyzine 50 mg p.o. q.6 hours p.r.n. for anxiety. B. Diet: Regular. C. Activities: As tolerated. The patient is a smoker; however, he is declining the use of continue d nicotine replacement therapies, choosing to continue use of tobacco. In the event that he changes his mind he has been provided with the [place] Smokers' Quitline at . There are no laboratory or diagnostic studies pending at the time of discharge. D. Follow-up care: The patient will follow up with the [facility] on , 08/27/18 at 2:30 p.m. E. Substance abuse follow-up: The patient will follow up at the [facility] [place] on Sunday , 08/27/18 at 1:30 p.m. HOSPITAL COURSE - PART A: Reason for admission: The patient is a 33-year-old single white male with a dual diagnosis history of polysubstance as well as depression and anxiety, who was brought to the hospital by his father and girlfriend following confused hallucinating behaviors in the context of an intentional overdose on gabapentin and Wellbutrin. The patient's story is that he had missed [facility] appointments with his outpatient providers at [facility] and was discharged from the [facility]. Thereafter, he went to the [facility] 1 week prior to adm ission, where he saw Dr. Savana Neumann, who continued his gabapentin treatment and discontinued Proz ac in favor of Wellbutrin due to the patient's complaint of sexual side effects. The patient indicat es that he was experimenting with Wellbutrin as an upper and gabapentin as a downer, although he does not have a clear memory of the events leading up to this overdose. He did feel that he was using th cayden medications recreationally to get high. His father indicated that he was stressed out about pam dia his daughter for visitation over that weekend and had misused his medications because he was feeli ng anxious. At any rate, the patient steadfastly denied any suicidal ideations. My understanding is that when he arrived in the hospital, he suffered a seizure likely secondary to bupropion toxicity. During this event, he was confused and made a statement about an ex-partner in front of his current girlfriend causing them to get into some type of argument. He later tried to elope from the hospital 's medical floor. When I saw him, I screened him for neurovegetative symptoms of depression and he e ndorsed poor sleep, anhedonia, guilt, decreased energy, poor concentration, although he denied appeti te disturbance, psychomotor retardation or suicidal ideations. The patient was offered voluntary adm ission, which he initially declined but later accepted, transferred to the behavioral science unit, w hich occurred on , 08/15/2018. HOSPITAL COURSE - PART B: Psychiatric treatment rendered: The patient was transferred from the [facility] service to the behavioral science unit where he was placed on q.15 minute checks for his own safe ty. At this time, he had been medically cleared with multiple normal EKGs. We discontinued both his bupropion as well as gabapentin therapies and replaced them with a trial of mirtazapine. The reason for this choice is that mirtazapine has both antidepressant and anxiolytic benefits without having s exual side effects and is not considered a drug of abuse. While on our unit, he was an active partici pant in groups. He was social with peers and made many friendships. He was very compassionate towar ds others and was well thought of by staff and peers. He did demonstrate significant depressive symp toms, although he denied suicidality. Interestingly, his girlfriend found a suicide note in their ap artment that had been written by the patient approximately 1 to 2 months prior to this episode. The patient denied suicidality; however stating that his 6-year-old daughter needs him and that she is a significant reason for his desire to continue living. The patient was also treated with clonazepam f or anxiety benefits, although this was discontinued in favor of hydroxyzine, which is non-habit formi ng. We did have contact with both his father and his girlfriend and they were supportive of the disc harge plan. In fact, his girlfriend has arrived to pick him up and take him home. He is agreeable n ot only to substance abuse treatment, but also mental health followup and these appointments have bee n established. At this time, the patient feels like he has gotten all the benefit that he can derive from the inpatient setting and he is ready to receive continued care in a less restrictive environme nt which we are supportive of. The patient has done very well here and we wish him success for a hea lthy, safe and sober future. [id number]/[facility] #: [id number]
== END 2018-08-21 11:27 | disposition home or self-care (01) | DRG 751 ==
LOC: ED 05:41 → MEDTELE 09:07 → ICU 10:54 → MED 08-14 01:06 → OBSVTOIN 08-14 14:00 → BSU 08-16 13:20
PROVIDERS: ADMIT Internal Medicine; ATTEND Psychiatry & Neurology Psychiatry
PROC: 4A10X4Z Monitoring of Central Nervous Electrical Activity, External Approach (ICD-10-PCS; principal; 2018-08-14)
DX: F33.2 Major depressive disorder, recurrent severe without psychotic features (principal); G92 Toxic encephalopathy; F13.90 Sedative, hypnotic, or anxiolytic use, unspecified, uncomplicated; R32 Unspecified urinary incontinence; F41.0 Panic disorder [episodic paroxysmal anxiety]; T42.6X2A Poisoning by other antiepileptic and sedative-hypnotic drugs, intentional self-harm, initial encounter; R00.0 Tachycardia, unspecified; F90.9 Attention-deficit hyperactivity disorder, unspecified type; T43.292A Poisoning by other antidepressants, intentional self-harm, initial encounter; F17.210 Nicotine dependence, cigarettes, uncomplicated; Y92.009 Unspecified place in unspecified non-institutional (private) residence as the place of occurrence of the external cause; Z72.89 Other problems related to lifestyle; Z88.1 Allergy status to other antibiotic agents; Z88.0 Allergy status to penicillin; Z81.8 Family history of other mental and behavioral disorders; Z81.1 Family history of alcohol abuse and dependence; Z56.0 Unemployment, unspecified
CPT/HCPCS: 36415; 70450; 80048; 80053; 80307; 80320; 80329; 81003; 82140; 82550; 82803; 83605; 83735; 84100; 84443; 85025; 87641; 90686; 93005; 95816; 99222; 99231; 99233; 99283; A9270-GY; G0480; J2060; J3480

== ENCOUNTER 2019-01-02 23:53 | Inpatient (IN) | payer OTHER ==
[2019-01-03] MEDS ORDERED: LORazepam INJ* 2 MG/ML 1 ML VIAL ONE ×2 (00:14→00:17)
--- NOTE | 2019-01-03 00:16 | ED ---
Substance Abuse/Use - HPI Summary HPI Summary: Pt is a 33 y/o male brought in by police on a 9.41 who presents to the ED s/p overdose. As per police, he had a dispute with his girlfriend myron and subsequently overdosed on his medication in an attempt to kill himself. He then showed up to the police station and asked for help because he is suicidal. Pt signed off with EMS at the scene. As per nurses note, he ingested nine 100 mg Wellbutrin pills, and seven 50 mg Hydroxyzine pills at 23:00. While in the triage room he was A&Ox3 but suddenly began seizing. He was immediately brought back to the room on a stretcher. PMHx seizure, anxiety, ADHD, depression, panic disorder, and substance abuse (marijuana, heroin, opiates). Vital signs while in room: HR 151 bpm, BP 154/96. - History Of Current Complaint Chief Complaint: EDOverdose Stated Complaint: 941 MHE PER POLICE Hx Obtained From: Patient, EMS, Medical Records Ingestion History: Type/Name Of Drug - 9 100 mg Wellbutrin pills, 7 50 mg Hydroxyzine pills, Approximate Time Of Ingestion - 23:00 Overdose Characteristics: Oral Alleviating Factor(s): Nothing Associated Signs And Symptoms: Seizure Related Hx: Suicidal - Allergies/Home Medications Allergies/Adverse Reactions: Allergies Allergy/AdvReac Type Severity Reaction Status Date / Time cefaclor [From [facility]] Allergy Anaphylatic Verified 08/05/18 15:11 Shock Penicillins Allergy Anaphylatic Verified 08/05/18 15:11 Shock Home Medications: Home Medications buPROPion HCl [Bupropion HCl Sr] 200 mg PO DAILY 01/03/19 [History Confirmed 02/16] PMH/Surg Hx/FS Hx/Imm Hx Cardiovascular History: Denies: Hx Hypotension GI History: Reports: Other GI Disorders - Acid reflux Sensory History: Reports: Other Sensory Impairments - intermittent numbess/ tingling throughout Denies: Hx Cataracts, Hx Contacts or Glasses, Hx Eye Injury, Hx Eye Prosthesis, Hx Glaucoma, Hx Legally Blind, Hx Macular Degeneration, Hx Vision Problem, Hx Deafness, Hx Hearing Aid, Hx Hearing Problem Opthamlomology History: Reports: Other Sensory Impairments - intermittent numbess/tingling throughout Denies: Hx Cataracts, Hx Contacts or Glasses, Hx Eye Injury, Hx Eye Prosthesis, Hx Glaucoma, Hx Legally Blind, Hx Macular Degeneration, Hx Vision Problem Neurological History: Denies: Hx CVA, Hx Dementia Psychiatric History: Reports: Hx Anxiety, Hx Attention Deficit Hyperactivity Disorder, Hx Depression, Hx Panic Disorder, Hx Community Mental Health Tx, Hx Substance Abuse Denies: Hx Eating Disorder, Hx Inpatient Treatment, Hx Suicide Attempt, Hx of Violent Episodes Against Others - Surgical History Surgery Procedure, Year, and Place: [place] Teeth Extraction Infectious Disease History: No Infectious Disease History: Denies: Hx Clostridium Difficile, Hx Hepatitis, Hx Human Immunodeficiency Virus (HIV), Hx of Known/Suspected MRSA, Hx Shingles, Hx Tuberculosis, History Other Infectious Disease, Traveled Outside the [place] in Last 30 Days - Family History Known Family History: Negative: Respiratory Disease, Seizure Disorder - Social History Alcohol Use: girlfriend reports binge drinking Hx Substance Use: Yes Substance Use Type: Reports: Marijuana, Prescribed Substance Use Comment - Amount & Last Used: History of using heroin, opiates Hx Tobacco Use: Yes Smoking Status (MU): Light Every Day Tobacco Smoker Type: Cigarettes Have You Smoked in the Last Year: Yes Review of Systems Neurological: Other - seizure Positive: Other - SI All Other Systems Reviewed And Are Negative: No Physical Exam - Summary Physical Exam Summary: VITAL SIGNS: Reviewed. GENERAL: Patient is a well-developed and nourished MALE who is lying comfortable in the stretcher. Patient is not in any acute respiratory distress. HEAD AND FACE: No signs of trauma. No ecchymosis, hematomas or skull depressions. No sinus tenderness. EYES: PERRLA, EOMI x 2, No injected conjunctiva, no nystagmus. EARS: Hearing grossly intact. Ear canals and tympanic membranes are within normal limits. MOUTH: Oropharynx within normal limits. NECK: Supple, trachea is midline, no adenopathy, no JVD, no carotid bruit, no c- spine tenderness, neck with full ROM. CHEST: Symmetric, no tenderness at palpation LUNGS: Clear to auscultation bilaterally. No wheezing or crackles. CVS: Tachycardic rate but regular rhythm, S1 and S2 present, no murmurs or gallops appreciated. ABDOMEN: Soft, non-tender. No signs of distention. No rebound no guarding, and no masses palpated. Bowel sounds are normal. EXTREMITIES: FROM in all major joints, no edema, no cyanosis or clubbing. NEURO: Initially alert and oriented x 3. No acute neurological deficits. Speech is normal and follows commands. Now sedated. SKIN: Dry and warm Triage Information Reviewed: Yes Vital Signs On Initial Exam: Initial Vitals Temp Pulse Resp BP Pulse Ox 98.6 F 108 16 133/94 98 01/02/19 23:56 01/02/19 23:56 01/02/19 23:56 01/02/19 23:56 01/02/19 23:56 Vital Signs Reviewed: Yes Diagnostics - Vital Signs Vital Signs Temp Pulse Resp BP Pulse Ox 01/02/19 23:56 98.6 F 108 16 133/94 98 - Laboratory Result Diagrams: 01/03/19 00:35 01/03/19 00:35 Lab Statement: Any lab studies that have been ordered have been reviewed, and results considered in the medical decision making process. - EKG 00:27 Cardiac Rate: Tachycardia - 145 bpm EKG Rhythm: Sinus Tachycardia Summary of EKG Findings: Normal axis. Prolonged QT interval. No ischemic changes. Course/Dx - Course Course Of Treatment: Pt is a 33 y/o male brought in by police on a 9.41 who presents to the ED s/p overdose in an attempt to kill himself. He ingested nine 100 mg Wellbutrin pills, and seven 50 mg Hydroxyzine pills at 23:00. A physical exam revealed tachycardic HR, and sedated. An EKG revealed tachycardia at a rate of 145 bpm, and prolonged QT interval. Pt was actively seizing and was given IV fluids, Ativan 2x, Keppra, and Magnesium Sulfate. Bloodwork revealed a Carbon Dioxide of 11, and a Lactic Acid of 17.6. Pt is admitted to Dr. Gomez with final dx of suicide attempt and drug overdose. He is agreeable with this plan. 40 minutes of CCT. - Diagnoses Provider Diagnoses: Suicide attempt, Drug overdose - Physician Notifications Discussed Care Of Patient With: Poison Control Time Discussed With Above Provider: 00:23 Instructed by Provider To: Other - It is too late to give charcoal. Pt does not need to be intubated. At 1:40 Dr. Gomez accepts for admission. - Critical Care Time Critical Care Time: 30-74 min - 40 mins - CCT is exclusive of separately billable procedures Discharge - Sign-Out/Discharge Documenting (check all that apply): Patient Departure - Admit Patient Received Moderate/Deep Sedation with Procedure: Yes - Discharge Plan Condition: Stable Disposition: ADMITTED TO [facility] - Billing Disposition and Condition Condition: STABLE Disposition: Admitted to [facility] - Attestation Statements Document Initiated by Scribe: Yes Documenting Scribe: Georgiana Mckinney Provider For Whom Scribe is Documenting (Include Credential): Ariadna Milton MD Scribe Attestation: Georgiana Santos, scribed for Ariadna Milton MD on 01/03/19 at 0519. Scribe Documentation Reviewed: Yes Provider Attestation: The documentation as recorded by the Georgiana ashby accurately reflects the service I personally performed and the decisions made by Kelin flores MD Status of Scribe Document: Viewed
[2019-01-03] MEDS ORDERED: NS 0.9% 1000 ML** 1,000 ML IV ONE ×3 (00:27→01:37)
[2019-01-03] MEDS ORDERED: levETIRAcetam 1000MG IVPREMIX* 1,000 MG/100 ML BAG IVPB ONE (00:28)
[2019-01-03] MEDS ORDERED: LORazepam INJ* 2 MG/ML 1 ML VIAL IV PUSH ONE ×2 (00:28)
[2019-01-03] MEDS ORDERED: Magnesium Sulfate 2 GM IV* 2 GM/50 ML BAG IVPB ONE (00:30)
[2019-01-03 00:44] LABS: Hematocrit 46 % (36-46); Hemoglobin 14.7 g/dL (14.0-18.0); Mean Corpuscular HGB Conc 32 g/dL (31-36); Mean Corpuscular Hemoglobin 27 pg (27-31); Mean Corpuscular Volume 86 fL (80-94); Mean Platelet Volume 7.4 fL (7.4-10.4); Platelet Count 306 10^3/uL (150-450); Red Cell Distribution Width 14 % (10.5-15); White Blood Count 13.4 10^3/uL (3.5-10.8)
[2019-01-03 01:04] LABS: ALT 55 U/L (7-52); AST 142 U/L (13-39); Albumin 5.2 g/dL (3.2-5.2); Albumin/Globulin Ratio 1.5 (1-3); Alkaline Phosphatase 50 U/L (34-104); BUN/Creatinine Ratio 8.9 (8-20); Blood Urea Nitrogen 12 mg/dL (6-24); Calcium 10.5 mg/dL (8.6-10.3); Chloride 102 mmol/L (101-111); EGFR African American 74.1 (>60); EGFR Non-African American 61.2 (>60); Globulin 3.4 g/dL (2-4); Glucose 132 mg/dL (70-100); Potassium 4.1 mmol/L (3.5-5.0); Sodium 141 mmol/L (135-145); Total Protein 8.6 g/dL (6.4-8.9)
[2019-01-03 01:06] LABS: Anion Gap 28 mmol/L (2-11); CO2 Carbon Dioxide 11 mmol/L (22-32)
[2019-01-03 01:16] LABS: Acetaminophen < 15 mcg/mL; Alcohol < 10 mg/dL (<10); Salicylate < 2.50 mg/dL (<30)
[2019-01-03 01:19] LABS: ABS Basophils 0.1 10^3/ul (0-0.2); ABS Eosinophils 0.3 10^3/ul (0-0.6); ABS Lymphocytes 4.3 10^3/ul (1.0-4.8); ABS Monocytes 1.6 10^3/ul (0-0.8); ABS Neutrophils 7.2 10^3/ul (1.5-7.7); ABS Nucleated RBC 0 10^3/ul; Eosinophil % 2.2 %; Lymphocyte % 32.2 %; Nucleated Red Blood Cells % 0
[2019-01-03 01:32] LABS: TSH (Thyroid Stimulating Horm) 1.88 mcIU/mL (0.34-5.60)
[2019-01-03 01:42] LABS: Creatine Kinase 6917 U/L (10-223)
[2019-01-03 01:50] LABS: Urine Appearance Clear; Urine Bacteria Absent (Absent); Urine Bilirubin Negative (Negative); Urine Blood 1+ (Negative); Urine Color Yellow; Urine Glucose Negative (Negative); Urine Ketones Trace (Negative); Urine Nitrite Negative (Negative); Urine Protein 1+(30 mg/dL) (Negative); Urine Red Blood Cell 1+(3-5/hpf) (Absent); Urine Specific Gravity 1.009 (1.010-1.030); Urine Urobilinogen Negative (Negative); Urine White Blood Cell Absent (Absent)
[2019-01-03 01:57] LABS: Barbiturates Urine Screen None Detected (None Detect); Benzodiazepine Urine Screen None Detected (None Detect); Urine Cannabinoids Screen Presumptive Positive (None Detect)
[2019-01-03] MEDS ORDERED: Al Hydrox/Mg Hydrox/Simet LIQ* 30 ML UDC PO PRN (02:14)
[2019-01-03] MEDS ORDERED: Ondansetron INJ* 2 MG/ML VIAL IV PRN (02:14)
[2019-01-03] MEDS ORDERED: LORazepam INJ* 2 MG/ML 1 ML VIAL IV PUSH SCH (03:00)
[2019-01-03 03:03] LABS: Magnesium 2.4 mg/dL (1.9-2.7)
[2019-01-03] MEDS: NS 0.9% 1000 ML** 1,000 ML IV SCH ×2 (04:40→10:03)
--- NOTE | 2019-01-03 06:26 | HP ---
CC: Faisal Gonzáles NP * HISTORY AND PHYSICAL: DATE OF ADMISSION: 01/03/19 TIME OF EVALUATION: 0200 PRIMARY CARE PHYSICIAN: Faisal Gonzáles NP CHIEF COMPLAINT: Overdose. HISTORY OF PRESENT ILLNESS: This is a 33-year-old male with a past medical history of suicide attempt with Wellbutrin with subsequent seizure episode and major depressive disorder, who presented to the emergency room after ingesting 9 tablets of Wellbutrin and 7 to 9 tablets of hydroxyzine. He was brought in by the police. While he was being in triage, he had a seizure. In the emergency room, the patient was given 3 L of fluid, 2 g of magnesium, 4 mg of Ativan, and 1000 mg of Keppra and was referred to the hospitalist service for further evaluation. He states he got into a fight with his girlfriend and was trying to kill himself. He was being prescribed Wellbutrin by [facility]. He was seeing counselor, but stopped seeing them and has not been attending. He states he has been recently working out, exercising with body aches and been taking ibuprofen max doses on a nearly daily basis. Denies any chest pain or shortness of breath. No nausea, vomiting, diarrhea. Otherwise, review of systems is negative. Admission to the hospital into the mental health unit back in August 2018 for a similar presentation of overdose on gabapentin and Wellbutrin resulting in a seizure activity. PAST MEDICAL HISTORY: 1. Major depressive disorder, recurrent, severe without psychotic features. 2. History of alcohol use. 3. History of sedative use. 4. Tobacco use. 5. Daily marijuana use. MEDICATIONS: 1. Hydroxyzine 50 mg every 6 hours as needed. 2. Bupropion 200 mg p.o. daily. 3. Mirtazapine 50 mg daily at bedtime. ALLERGIES: CEFACLOR, PENICILLIN FAMILY HISTORY: Reviewed and noncontributory. SOCIAL HISTORY: The patient was living with his girlfriend. 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 He states he smokes around 3 cigarettes a day. He states he only drinks every few months, he has cut back and he smokes marijuana daily. His healthcare proxy is his father Jerry, [phone]. Code status is full code. REVIEW OF SYSTEMS: A 14-point review of systems as mentioned in the HPI, otherwise negative. PHYSICAL EXAMINATION GENERAL: In no acute distress, appears sedated but awakes and able to respond and answer questions appropriately. VITAL SIGNS: Temp 98.6, pulse rate is 113, respiratory rate is 16, oxygen saturation is 95% on room air, blood pressure is 154/96. HEENT: Head: Normocephalic. Pupils are dilated, reactive. Conjunctivae injected. Oropharynx: Mucous membranes moist. NECK: Supple. No lymphadenopathy. RESPIRATORY: Diminished breath sounds. No wheezes, rhonchi or rales. CARDIAC: Tachycardia. Soft systolic murmur heard throughout. ABDOMEN: Soft, nontender, and nondistended. EXTREMITIES: No clubbing, cyanosis or edema. +1 DPs. NEUROLOGIC: Alert and oriented x3. No gross focal neurologic deficits. The patient as mentioned seems sedated, but awakes appropriately. DIAGNOSTIC STUDIES/LAB DATA: White count 13.4, hemoglobin 14.7, hematocrit 46, platelets 206. Sodium 141, potassium 4.1, glucose 102, bicarb 11, BUN 12, creatinine 1.35. Lactic acid 17.6, calcium 10.5. AST is 142, ALT 55. Total CK is 6917. TSH 1.88. UA shows trace ketones, +1 blood. Toxicology positive for cannabinoids, negative for alcohol. EKG shows sinus tachycardia with a rate of 145 and QTC of 595. ASSESSMENT: This is a 33-year-old male with past medical history of depression with suicide attempt and psychiatric admission for a similar presentation with Wellbutrin overdose, presented again with a overdose and a seizure activity. 1. Toxic ingestion with Wellbutrin, hydroxyzine and subsequent seizure activity. On last admission, the patient was consulted by Neurology who felt that his seizure activity was likely due to Wellbutrin toxicity, which is certainly could be the case again in this situation. Plan: We will admit to tele, continue seizure precautions, neuro checks. We will repeat his labs in the morning, consider touching base with Neurology regarding this is the second seizure if antiepileptics is indicated, but I suspect it is not in the setting of his Wellbutrin toxicity. We will also place the patient on a one-to-one, consult Psych and Social Work. 2. Acute kidney injury. Assessment: It could be related to ingestion of high doses of ibuprofen. Plan: We will continue IV fluids and repeat his labs in the morning, renally dose his medications. 3. Metabolic acidosis. The patient with a significant lactic acidosis. He also has a bicarb of 11, this is likely related to his seizure activity. We will continue aggressive IV fluids and repeat his lactate in the morning. 4. Rhabdomyolysis. The patient with an elevated CK and a bump in his creatinine. Again, aggressive fluids and follow up his labs in the morning. 5. History of alcohol use. His AST is double his ALT, which would suggest active alcohol use, but his alcohol level is negative. We will place him on the [place] protocol just in case he starts having symptoms of withdrawal. 6. FEN. We will order dysphagia screening with his sedative behavior and place him on a regular diet once he is alert and also passes swallow study. 7. DVT prophylaxis. The patient scores low risk. We will encourage ambulation. 8. Code status. Full code. PATIENT TIME: Greater than 40 minutes was spent doing the history and physical , more than half the time spent in direct patient contact. [id number]/CPS #: [id number] LV
[2019-01-03] MEDS: Thiamine TAB* 100 MG TAB PO SCH (09:00)
[2019-01-03] MEDS: Folic Acid TAB* 1 MG PO SCH (09:00)
[2019-01-03] MEDS: Divalproex DR TAB(*) 500 MG PO SCH ×2 (09:00→20:47)
[2019-01-03] MEDS: Multivitamins/Minerals TAB PO SCH (09:00)
[2019-01-03 09:01] LABS: ABS Basophils 0 10^3/ul (0-0.2); ABS Eosinophils 0.2 10^3/ul (0-0.6); ABS Lymphocytes 1.8 10^3/ul (1.0-4.8); ABS Monocytes 1.5 10^3/ul (0-0.8); ABS Neutrophils 8.6 10^3/ul (1.5-7.7); ABS Nucleated RBC 0 10^3/ul; Hematocrit 37 % (36-46); Hemoglobin 12.2 g/dL (14.0-18.0); Lymphocyte % 15.1 %; Mean Corpuscular HGB Conc 33 g/dL (31-36); Mean Corpuscular Hemoglobin 27 pg (27-31); Mean Corpuscular Volume 83 fL (80-94); Mean Platelet Volume 7.2 fL (7.4-10.4); Nucleated Red Blood Cells % 0; Platelet Count 250 10^3/uL (150-450); Red Cell Distribution Width 13 % (10.5-15); White Blood Count 12.2 10^3/uL (3.5-10.8)
[2019-01-03 09:10] LABS: Albumin 4.1 g/dL (3.2-5.2); Albumin/Globulin Ratio 1.6 (1-3); BUN/Creatinine Ratio 10.1 (8-20); Calcium 8.6 mg/dL (8.6-10.3); EGFR African American 119.9 (>60); EGFR Non-African American 99.1 (>60); Globulin 2.6 g/dL (2-4); Magnesium 2.3 mg/dL (1.9-2.7); Potassium 3.6 mmol/L (3.5-5.0); Total Bilirubin 0.5 mg/dL (0.2-1.0); Total Protein 6.7 g/dL (6.4-8.9)
--- NOTE | 2019-01-03 12:19 | PN ---
Subjective Date of Service: 01/03/19 Interval History: Patient is feeling persistently hopeless and like he is "not living his best self." Patient states at home that he can "go days without doing anything." Patient states that his last alcoholic drink was 1 week prior to admission. Patient states that his mood is cyclical on a 6 week cycle. Patient denies CP, SOB, N/V, abdominal pain, dysuria, abdominal pain, diarrhea. Patient has no recollection of the event surrounding his seizure last night. Patient has poor memory at baseline per his report. Patient has muscle aches but attributes them to vigorous exercise. Patient would be interested in inpatient psychiatric admission if indicated. Family History: Unchanged from Admission Social History: Unchanged from Admission Past Medical History: Unchanged from Admission Objective Active Medications: Acetaminophen (Tylenol Tab*) 650 mg PO Q4H PRN PRN Reason: FEVER/PAIN Al Hydrox/Mg Hydrox/Simethicone (Maalox Plus*) 30 ml PO Q6H PRN PRN Reason: INDIGESTION Divalproex Sodium (Depakote Dr Tab(*)) 500 mg PO BID [facility] Last Admin: 01/03/19 09:00 Dose: 500 mg Folic Acid (Folvite Tab*) 1 mg PO DAILY [facility] Last Admin: 01/03/19 09:00 Dose: 1 mg Sodium Chloride (Ns 0.9% 1000 Ml) 1,000 mls @ 175 mls/hr IV PER RATE [facility] Last Admin: 01/03/19 10:03 Dose: 175 mls/hr Lorazepam (Ativan Inj*) 0 - 6 mg IV PUSH .PER [facility] PROTOCOL [facility]; Protocol Multivitamins/Minerals (Theragran/Minerals Tab*) 1 tab PO DAILY [facility] Last Admin: 01/03/19 09:00 Dose: 1 tab Ondansetron HCl (Zofran Inj*) 4 mg IV Q4H PRN PRN Reason: NAUSEA/VOMITING Thiamine HCl (Vitamin B-1 Tab*) 100 mg PO DAILY [facility] Last Admin: 01/03/19 09:00 Dose: 100 mg Vital Signs - 8 hr 01/03/19 01/03/19 01/03/19 04:50 07:35 12:02 Temperature 97.2 F 97.3 F 97.7 F Pulse Rate 102 103 86 Respiratory 16 14 16 Rate Blood Pressure 131/80 135/81 114/52 (mmHg) O2 Sat by Pulse 99 99 97 Oximetry Oxygen Devices in Use Now: None Appearance: Patient is a 33yo male who appears stated age and is sitting in the bed in NAD. Eyes: No Scleral Icterus, PERRLA Ears/Nose/Mouth/Throat: NL Teeth, Lips, Gums, Clear Oropharnyx, Mucous Membranes Moist Neck: NL Appearance and Movements; NL JVP, Trachea Midline Respiratory: Symmetrical Chest Expansion and Respiratory Effort, Clear to Auscultation Cardiovascular: NL Sounds; No Murmurs; No JVD, RRR, No Edema Abdominal: NL Sounds; No Tenderness; No Distention, No Hepatosplenomegaly Lymphatic: No Cervical Adenopathy Extremities: No Edema, No Clubbing, Cyanosis Skin: No Rash or Ulcers, No Nodules or Sclerosis Neurological: Alert and Oriented x 3, NL Sensation, NL Muscle Strength and Tone , - - CN II-XII intact. Result Diagrams: 01/03/19 08:07 01/03/19 08:07 Assess/Plan/Problems-Billing Assessment: Patient is a 33yo male with a PMH for MDD, Substance use disorder, and previous suicide attempt by overdose who is admitted for seizures induced by intentional buproprion overdose who is improving without ongoing seizure activity. - Patient Problems (1) Major depressive disorder, recurrent episode Current Visit: No Status: Acute Priority: High Code(s): F33.9 - MAJOR DEPRESSIVE DISORDER, RECURRENT, UNSPECIFIED SNOMED Code(s): 010499617 Comment: - With suicide attempt by overdose, continued suicidal ideation - Previous history of the same - Recent diagnosis of borderline personality disorder - Psych consult pending (2) Seizure Current Visit: No Status: Acute Code(s): R56.9 - UNSPECIFIED CONVULSIONS SNOMED Code(s): 39541031 Comment: - Likely due to wellbutrin overdose - No recurrence. Appreciate Neurology input - Start Depakote per recommendations for short term seizure prophylaxis and possibly intermodal customer service mood stabilization. (3) Anxiety Current Visit: No Status: Suspected Priority: High Onset Date: 06/25/15 Code(s): F41.9 - ANXIETY DISORDER, UNSPECIFIED SNOMED Code(s): 80267902 Comment: - Psych consult pending - Hold psychiatric medications at this time. - May need inpatient psychiatric admission. (4) DVT prophylaxis Current Visit: Yes Status: Acute Code(s): EBL8643 - SNOMED Code(s): 956747279 Comment: - Low Risk, encourage Ambulation (5) Full code status Current Visit: Yes Status: Acute Code(s): Z78.9 - OTHER SPECIFIED HEALTH STATUS SNOMED Code(s): 040434656 Status and Disposition: Inpatient for seizure and suicidal ideation, may need inpatient psychiatric care.
[2019-01-03] MEDS ORDERED: Charcoal ACTIVATED* 25 GM/120 ML BTL PO ONE (12:38)
--- NOTE | 2019-01-03 16:10 | CONS ---
CONSULTATION REPORT/PSYCHIATRIC HISTORY AND PHYSICAL: DATE OF ADMISSION: 01/03/19 DATE OF CONSULT: 01/03/19 ATTENDING CLINICIAN: Physician's therapy administrative assistant, Jose Friend. CONSULTING PHYSICIAN: Dr. Ric Guerrero. REASON FOR CONSULT: Suicidal overdose. SUBJECTIVE HISTORY: The patient is a 33-year-old, single white male with a dual- diagnosis history o f polysubstance abuse as well as major depressive disorder who is well known to this clinician from a brief psychiatric admission in mid-August of 2018, who now returns to the hospital following an in tentional overdose on 9 tablets of Wellbutrin and 7 to 9 tablets of hydroxyzine. He was brought in b y the police and while in the triage area suffered a seizure. From there, he was admitted to the [facility] service. Apparently, he had told some staff members on the 4th floor that this was simply a n attempt to get high; however, upon my examination, he admits to me that it was a suicide attempt. He has quoted stating "I did a cost-benefit analysis and on the whole I feel like everything would be better if I just wasn't here." When asked about the precipitating events leading to this suicide at [facility], he states that things have been kristan between him and his live-in girlfriend for several month s. Apparently, he relapsed a few months ago on alcohol and then again relapsed approximately 1 week ago following the of one of his friends' mothers. This upset his girlfriend greatly. [facility] lapsed due to failure to submit new paperwork and therefore he stopped going to his therapy and med management appointments at the [facility]. He denies any other recent drugs of abuse. Symptomatically, he is endorsing depression as well as poor sleep, anhe donia, guilt, decreased energy, poor concentration. He is denying appetite disturbance or psychomoto r retardation. The patient was told that he would be readmitted to the behavioral science unit and he did not necessarily protest this. PAST PSYCHIATRIC HISTORY: The patient is known to me from a hospitalization on the BSU from 08/14/18 to 08/21/18. Prior to this, he had received treatments with Ativan, Klonopin, Prozac, and Paxil fro m a nurse practitioner named Faisal Gonzáles. In addition, he saw a psychiatrist, Dr. Johnson, and receive d large amounts of Xanax. He does admit to misutilizing benzodiazepines from providers in the past. He does indicate that he has had several suicide attempts in the past through overdose. He had a mor e remote psychiatric hospitalization on the BSU in 2014 for what he refers to as an extended panic at [facility]. In 2009, he received treatment briefly at [facility] and again this previous winter. He has no history of homicidal ideations. He does endorse a history of being bulli ed during middle school, which coincided with his parents' divorce. He does indicate some neglect fr om his parents and that he was raised primarily by a nanny and felt often that his parents were not t here for him. He denies any significant history of traumatic brain injury. SUBSTANCE ABUSE HISTORY: Quite extensive. He is an active abuser of alcohol whose most recent relap se was 1 week ago. In the past, he has been treated with Antabuse, although not recently. His longe st period of sobriety was 6 months, although he cannot remember exactly when this was. He does have 1 rehab inpatient experience at [facility] in [place], [place], for 4 to 5 days in 2014. Most recently, he was referred to the [facility] in August of last year, but did not foll ow through with this. He has no history of DWIs or legal consequences. He states that he has been i n and out of community involvement with the [facility]. He is a daily cannabis abuse r. In the past, he has abused several different benzodiazepines, abused Adderall in college, and has used cocaine in the past. He started using drugs in high school when he abused opioid pain pills an d has used IV heroin at least once in 2010 but not since. MEDICAL HISTORY: Noncontributory. ALLERGIES: He is allergic to PENICILLIN and CECLOR. FAMILY HISTORY: He has a paternal grandfather with depression and alcohol abuse and maternal grandfa ther who was a combat with PTSD who received electroconvulsive therapy. His mother has been treated for anxiety, whereas his father has been treated for depression with Wellbutrin. SOCIAL HISTORY: He was born and raised as an only child in [place]. His parents when he was 14 years old. He graduated [place] [employer] and attended 2- 1/2 years of college at [employer] in [place], [place]. He has no history of service. He is sexually active with his girlfri end. He denies being yazidism or spiritual. 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 He is still financ ially supported by his mother, which he feels guilty about. He has never been , but does have a 6-year-old daughter from a previous relationship. He has no significant history of legal problems . MENTAL STATUS EXAM: The patient is a young white male with hair that is long in the middle and shave d on the sides and a diaz. He is dressed in a patient gown, sitting upright in bed, makes fairly go od eye contact. He is calm, cooperative, easy to establish a rapport with. Speech is fluent with a normal rate, tone, and volume. Mood is anxious with a tearful affect at times. Thought process is l inear and goal-directed. Thought content is significant for his desire to straighten out his life. Currently, he is denying suicidal or homicidal ideations. He denies auditory or visual hallucination s. Insight and judgment appear to be fair given his willingness to come back into the hospital. Cog nitively, he is awake and alert with what would appear to be an average intellect. DIAGNOSES: As follows: Samson I: Major depressive disorder, recurrent, moderate; alcohol use disorder ; sedative use disorder by history. Samson II: Deferred. ASSESSMENT: The patient is a 33-year-old single white male with cooccurring substance abuse disorder s and major depression, who arrives back in the hospital having overdosed on Wellbutrin and hydroxyzi ne in an intentional attempt to end his own life. He apparently has dropped out of treatment in the community after losing his insurance, but continues to take mirtazapine. Although he is denying suic idal ideations currently, I do feel that he is a risk to himself at this time and therefore I am selma ating a 9:39 involuntary psychiatric hospitalization. RECOMMENDATIONS TO PRIMARY TEAM: Psychiatry feels that the patient warrants BSU care on the 9.39 inv oluntary status. Once admitted, we can resume mirtazapine 15 mg p.o. q.h.s. I will reach out to isabela telles the [facility] as well as the [facility] to see about recon necting him to services in the community and we can have him see a Medicaid navigator to recertify hi s insurance. While he is on our unit, he is strongly encouraged to avail himself of milieu activitie s including individual and group psychotherapies. We will include his family in the treatment plan a nd process as much as the patient will allow. [id number]/[facility] #: [id number]
[2019-01-03] MEDS ORDERED: Nicotine GUM* 2 MG PO PRN (16:27)
[2019-01-03] MEDS: Nicotine Inhaler* 10 MG AMP INH PRN (17:56)
[2019-01-03] MEDS ORDERED: Mouth Piece, Nicotine* 1 EACH CARTRIDGE ONE (17:56)
--- NOTE | 2019-01-03 19:29 | DS ---
CC: Dr. Ric Guerrero; Dr. Seamus Ruano * DISCHARGE SUMMARY: DATE OF ADMISSION: 01/03/19 DATE OF DISCHARGE: 01/03/19 PRIMARY CARE PROVIDER: The patient has no primary care provider. MY ATTENDING WHILE IN THE HOSPITAL: Dr. Seamus Ruano.* (DICTATED BY LIZ OCAMPO) PRIMARY DISCHARGE DIAGNOSES: 1. Seizure, intentional, over bupropion and hydroxyzine overdose. 2. Anion gap metabolic acidosis due to seizure, resolved. 3. Rhabdomyolysis, improving. SECONDARY DISCHARGE DIAGNOSES: 1. Major depressive disorder. 2. History of polysubstance abuse. 3. History of alcohol abuse. 4. Tobacco abuse. MEDICATIONS AT DISCHARGE: 1. Mirtazapine 15 mg p.o. at bedtime. 2. Tylenol 650 mg q.4 hours as needed. 3. Depakote 500 mg p.o. b.i.d. 4. Multivitamin 1 tab p.o. daily. 5. Thiamine 100 mg p.o. daily. Medications discontinued at discharge: 1. Hydroxyzine 50 mg p.o. q.6 hours as needed. 2. Bupropion 200 mg p.o. daily. New medications at discharge: 1. Depakote. 2. Multivitamin. 3. Thiamine. 4. Tylenol. HOSPITAL COURSE: This is a brief summary of the patient's presentation. For more details, please see the history and physical from Libby Gomez DO, on 02/16. In brief, the patient is a 33-year-old male with past medical history significant for major depressive disorder, previous suicide attempt by drug overdose, and seizures subsequent to previous bupropion overdose, who presents to the emergency department after having a fight with his girlfriend and mother of his child and taking 9 tablets of Wellbutrin and 7 to 9 tablets of hydroxyzine. The patient had a witnessed seizure in the emergency department for which he was given 4 g of Ativan, 1000 mg of Keppra, 2 g of magnesium, and 3 L of fluid. The patient had labs drawn shortly after this episode with severe lactic acidosis and elevated creatine kinase of almost 7000. The patient was admitted to the hospital, was given fluids overnight. The patient' s creatine kinase trended down to 4758. The patient's basic metabolic panel otherwise entirely normalized. The patient denies alcohol abuse and showed no signs of alcohol withdrawal. The patient's alcohol level was undetectable upon admission. The patient was sober, but otherwise symptomatic. The patient's vital signs, the patient was initially tachycardic, but trended down to the normal range. The patient had no other significant vital sign abnormalities. The patient was discussed with Dr. Lin of Neurology, who recommended at least 2 weeks of Depakote for seizure prophylaxis and mood stabilization and then possible tapering or continuation for ongoing mood stabilization based on psychiatric recommendations. The patient was stable and voluntarily discharged to the behavioral services unit on 01/03/19 under the care of Dr. Ric Guerrero , who was previously familiar with this patient. DISCHARGE PLAN: The patient will be discharged to behavioral services unit. The patient will be restarted on Mirtazapine at this time. The patient will be continued on Depakote for a minimum of 2 weeks of 500 mg daily and then will be tapered or continued at the recommendation of Psychiatry. The patient should drink plenty of fluids due to his rhabdomyolysis, though his kidney function has normalized at this point. The patient should follow up with primary care provider in 1 week after discharge from behavioral services unit and establish and follow with an outpatient psychiatric provider. The patient should have regular unrestricted diet. Engage in activity as tolerated. TIME SPENT: Approximately 60 minutes was spent on the discharge of this patient , 30 of which was spent [id number] with the patient obtaining history and physical and discussing treatment plan. LIZ OCAMPO [id number]/[facility] #: [id number] LV
[2019-01-03] MEDS: Nicotine PATCH 21 MG/24 HR* PATCH TRANSDERM SCH (20:46)
[2019-01-03] MEDS: Nicotine Patch Removal NOTE FOLLOW UP SCH (20:49)
[2019-01-03] MEDS ORDERED: Mirtazapine TAB* 15 MG PO SCH (21:00)
--- NOTE | 2019-01-03 22:47 | EEG ---
ELECTROENCEPHALOGRAPHY: DATE OF STUDY: 01/03/19 ORDERED BY: LIZ Altman. CLINICAL PROBLEM: Mr. Wells is a 33-year-old man who overdosed on Wellbutrin. He had 1 witnessed generalized seizure. This EEG was requested to evaluate for epileptiform abnormality or electrographic seizures. MEDICATIONS: 1. Depakote. 2. Folic acid. 3. Theragran. 4. Vitamin B1. 5. Acetaminophen. 6. Maalox. 7. Ondansetron. 8. Lorazepam. RECORDING TIME: 10:29 to 10:56. CLINICAL STATE: Predominantly drowsy. REPORT: The background consisted of a mixed frequency slowing in the delta and theta range with appropriate organization, clearly defined anterior-posterior voltage gradient. There was diffuse superimposed beta frequency with a rate of 14 to 18 Hz seen throughout the recording. In addition, there was superimposed 1 to 2 Hz diffuse delta slowing seen intermittently lasting for 1 to 2 seconds. Attenuation of the occipital rhythm accompanied drowsiness. Hyperventilation and photic stimulation were not performed. EKG showed sinus tachycardia with a rate of 110 beats per minute. Throughout the recording, there were no electrographic seizures. CLINICAL IMPRESSION: This is an abnormal predominantly drowsy EEG due to diffuse slowing and excessive beta frequency. Otherwise, there was some retained organization and reactivity. These findings are suggestive of a mild nonspecific encephalopathy with excessive diffuse beta, typically seen in the setting of benzodiazepine use. There were no epileptiform discharges or electrographic seizures. [id number]/[facility] #: [id number] MTDD
[2019-01-04] MEDS: Multivitamins/Minerals TAB PO SCH (08:51)
[2019-01-04] MEDS: Divalproex DR TAB(*) 500 MG PO SCH ×2 (08:51→21:55)
[2019-01-04] MEDS: Thiamine TAB* 100 MG TAB PO SCH (08:51)
[2019-01-04] MEDS: Folic Acid TAB* 1 MG PO SCH (08:51)
[2019-01-04] MEDS: Nicotine Inhaler* 10 MG AMP INH PRN (09:21)
[2019-01-04] MEDS: Nicotine PATCH 21 MG/24 HR* PATCH TRANSDERM SCH (09:31)
--- NOTE | 2019-01-04 13:56 | PN ---
Subjective - Subjective Date of Service: 01/04/19 Service Type: 03014 Hosp care 15 min low complexity Subjective: The patient remains depressed and describes past hypomanic periods of decreased need for sleep, overproductivity, irritability and racing thoughts. He is tolerating Depakote well. Not sleeping well, and has passive SI. Objective - General Observations Appearance: Well Groomed Stature: WNL Posture: WNL Eye Contact: Avoidant Behavior/Activity: WNL - Interaction Observations Attitude Towards Examiner: Cooperative Stated Mood: Dysphoric Affect: Restricted Speech Pattern/Tone: Clear Thought Process: Coherent Perception: WNL Thought Content: Self-Deprecatory Thought Process: Lethality: Passive Wish Hallucination Type: None Delusion Type: None - Cognitive Function Orientation: A&O x 4 Level of Consciousness: Awake Cognition: WNL Estimated Intelligence: Normal Insight: WNL Ability to Make Reasonable Decisions: Mildly Impaired - Medication Compliance Cooperative with Inpatient Medication Regimen: Yes - Group Participation Participates in Group Activities: Yes Assessment - Assessment Merits Inpatient Hospitalization: For Immediate Safety, For Stabilization Inpatient DSM-V Dx: F31.81 Clinical Impression: 33 y.o. single, white male with a history of mood instability and drug and alcohol dependence transferred from the hospitalist service following an intentional suicidal overdose on bupropion and hydroxyzine. BSU: Problem List - Patient Problems (1) Bipolar 2 disorder Current Visit: Yes Status: Acute Priority: High Code(s): F31.81 - BIPOLAR II DISORDER SNOMED Code(s): 44649041 Plan - Plan Treatment Plan: Name: GIGI EDDY Birthdate: 1985 [id number] The patient meets criteria for bipolar type II. Will d/c mirtazapine and start Depakote 500mg PO BID. Augment this with quetiapine 100mg PO qhs. Continue inpatient treatment. Continued Medication Management: Different Medication Medications: Current Medications Acetaminophen (Tylenol Tab*) 650 mg PO Q4H PRN PRN Reason: FEVER/PAIN Al Hydrox/Mg Hydrox/Simethicone (Maalox Plus*) 30 ml PO Q6H PRN PRN Reason: INDIGESTION Divalproex Sodium (Depakote Dr Tab(*)) 500 mg PO BID MIGEL Last Admin: 01/04/19 08:51 Dose: 500 mg Multivitamins/Minerals (Theragran/Minerals Tab*) 1 tab PO DAILY [facility] Last Admin: 01/04/19 08:51 Dose: 1 tab Nicotine (Nicotine Inhaler*) 10 mg INH Q2H PRN PRN Reason: CRAVING Last Admin: 01/04/19 09:21 Dose: 10 mg Nicotine (Nicotine Patch 21 Mg/24 Hr*) 1 patch TRANSDERM DAILY [facility] Last Admin: 01/04/19 09:31 Dose: Not Given Nicotine Polacrilex (Nicotine Gum*) 2 mg PO Q2H PRN PRN Reason: CRAVING Pharmacy Profile Note (Nicotine Patch Removal Note*) 1 note FOLLOW UP 2100 [facility] Last Admin: 01/03/19 20:49 Dose: Not Given Quetiapine Fumarate (Seroquel Tab*) 100 mg PO BEDTIME [facility] - Discharge Plan Discharge Plan: Inpatient Hospitalization Lab Results - Lab Results Lab Results: 01/03/19 01/03/19 01/03/19 00:35 00:35 00:35 WBC 13.4 H RBC 5.40 Hgb 14.7 Hct 46 MCV 86 MCH 27 MCHC 32 RDW 14 Plt Count 306 MPV 7.4 Neut % (Auto) 53.5 Lymph % (Auto) 32.2 Eagle % (Auto) 11.6 Eos % (Auto) 2.2 Baso % (Auto) 0.5 Absolute Neuts (auto) 7.2 Absolute Lymphs (auto) 4.3 Absolute Monos (auto) 1.6 H Absolute Eos (auto) 0.3 Absolute Basos (auto) 0.1 Absolute Nucleated RBC 0 Nucleated RBC % 0 Sodium 141 Potassium 4.1 Chloride 102 Carbon Dioxide 11 L* Anion Gap 28 H BUN 12 Creatinine 1.35 H Est GFR ( Amer) 74.1 Est GFR (Non-Af Amer) 61.2 BUN/Creatinine Ratio 8.9 Glucose 132 H Lactic Acid 17.6 H* Calcium 10.5 H Magnesium 2.4 Total Bilirubin 0.50 AST 142 H ALT 55 H Alkaline Phosphatase 50 Total Creatine Kinase 6917 H Total Protein 8.6 Albumin 5.2 Globulin 3.4 Albumin/Globulin Ratio 1.5 TSH 1.88 Urine Color Urine Appearance Urine pH Ur Specific Altha Urine Protein Urine Ketones Urine Blood Urine Nitrate Urine Bilirubin Urine Urobilinogen Ur Leukocyte Esterase Urine WBC (Auto) Urine RBC (Auto) Urine Bacteria Hyaline Casts Urine Glucose Salicylates < 2.50 Urine Opiates Screen Acetaminophen < 15 Ur Barbiturates Screen Ur Phencyclidine Scrn Ur Amphetamines Screen U Benzodiazepines Scrn Urine Cocaine Screen U Cannabinoids Screen Serum Alcohol < 10 01/03/19 01/03/19 01/03/19 01:15 01:15 06:42 WBC RBC Hgb Hct MCV MCH MCHC RDW Plt Count MPV Neut % (Auto) Lymph % (Auto) Eagle % (Auto) Eos % (Auto) Baso % (Auto) Absolute Neuts (auto) Absolute Lymphs (auto) Absolute Monos (auto) Absolute Eos (auto) Absolute Basos (auto) Absolute Nucleated RBC Nucleated RBC % Sodium Potassium Chloride Carbon Dioxide Anion Gap BUN Creatinine Est GFR ( Amer) Est GFR (Non-Af Amer) BUN/Creatinine Ratio Glucose Lactic Acid 0.7 Calcium Magnesium Total Bilirubin AST ALT Alkaline Phosphatase Total Creatine Kinase Total Protein Albumin Globulin Albumin/Globulin Ratio TSH Urine Color Yellow Urine Appearance Clear Urine pH 7.0 Ur Specific Altha 1.009 L Urine Protein 1+(30 mg/dl) A Urine Ketones Trace A Urine Blood 1+ A Urine Nitrate Negative Urine Bilirubin Negative Urine Urobilinogen Negative Ur Leukocyte Esterase Negative Urine WBC (Auto) Absent Urine RBC (Auto) 1+(3-5/hpf) A Urine Bacteria Absent Hyaline Casts Present A Urine Glucose Negative Salicylates Urine Opiates Screen None detected Acetaminophen Ur Barbiturates Screen None detected Ur Phencyclidine Scrn None detected Ur Amphetamines Screen None detected U Benzodiazepines Scrn None detected Urine Cocaine Screen None detected U Cannabinoids Screen Presumptive positive A Serum Alcohol 01/03/19 01/03/19 01/03/19 06:42 08:07 08:07 WBC 12.2 H RBC 4.50 Hgb 12.2 L Hct 37 MCV 83 MCH 27 MCHC 33 RDW 13 Plt Count 250 MPV 7.2 L Neut % (Auto) 70.8 Lymph % (Auto) 15.1 Eagle % (Auto) 11.9 Eos % (Auto) 2.0 Baso % (Auto) 0.2 Absolute Neuts (auto) 8.6 H Absolute Lymphs (auto) 1.8 Absolute Monos (auto) 1.5 H Absolute Eos (auto) 0.2 Absolute Basos (auto) 0 Absolute Nucleated RBC 0 Nucleated RBC % 0 Sodium 138 Potassium 3.6 Chloride 109 Carbon Dioxide 23 Anion Gap 6 BUN 9 Creatinine 0.89 Est GFR ( Amer) 119.9 Est GFR (Non-Af Amer) 99.1 BUN/Creatinine Ratio 10.1 Glucose 98 Lactic Acid Calcium 8.6 Magnesium 2.3 Total Bilirubin 0.50 AST 97 H ALT 41 Alkaline Phosphatase 40 Total Creatine Kinase 4758 H Total Protein 6.7 Albumin 4.1 Globulin 2.6 Albumin/Globulin Ratio 1.6 TSH Urine Color Urine Appearance Urine pH Ur Specific Altha Urine Protein Urine Ketones Urine Blood Urine Nitrate Urine Bilirubin Urine Urobilinogen Ur Leukocyte Esterase Urine WBC (Auto) Urine RBC (Auto) Urine Bacteria Hyaline Casts Urine Glucose Salicylates Urine Opiates Screen Acetaminophen Ur Barbiturates Screen Ur Phencyclidine Scrn Ur Amphetamines Screen U Benzodiazepines Scrn Urine Cocaine Screen U Cannabinoids Screen Serum Alcohol
[2019-01-04] MEDS ORDERED: chlorproMAZINE TAB* 100 MG ONE (17:47)
[2019-01-04] MEDS ORDERED: chlorproMAZINE TAB* 100 MG PO ONE (18:00)
[2019-01-04] MEDS: Nicotine Patch Removal NOTE FOLLOW UP SCH (21:55)
[2019-01-04] MEDS: QUEtiapine TAB* 100 MG PO SCH (21:55)
[2019-01-05] MEDS: Multivitamins/Minerals TAB PO SCH (08:38)
[2019-01-05] MEDS: Nicotine PATCH 21 MG/24 HR* PATCH TRANSDERM SCH (08:38)
[2019-01-05] MEDS: Divalproex DR TAB(*) 500 MG PO SCH ×2 (08:38→20:55)
[2019-01-05] MEDS ORDERED: Mouth Piece, Nicotine* 1 EACH CARTRIDGE ONE (08:39)
[2019-01-05] MEDS ORDERED: chlorproMAZINE TAB* 50 MG PO PRN (13:48)
[2019-01-05] MEDS ORDERED: chlorproMAZINE INJ* 25 MG/ML 2 ML (50 MG) ONE (15:50)
[2019-01-05] MEDS ORDERED: chlorproMAZINE INJ* 25 MG/ML 2 ML (50 MG) IM ONE (16:00)
[2019-01-05] MEDS ORDERED: chlorproMAZINE INJ* 25 MG/ML 2 ML (50 MG) IM PRN (16:00)
--- NOTE | 2019-01-05 16:32 | PN ---
Progress Note - Progress Note Date of Service: 01/05/19 Note: Called to Behavioral Health Unit to eval Mr. Wells. Report from nursing staff is that Mr. Pascual became violent and aggressive towards staff requiring a physical restraint for IM administration of medication. On my arrival, Mr. Wells is alert and cooperative and states that he feels "as good as can be expected." He denies physical complaint. Vitals stable. Restrain paperwork completed with nursing staff.
[2019-01-05] MEDS: Acetaminophen TAB* 325 MG PO PRN (20:55)
[2019-01-05] MEDS: QUEtiapine TAB* 100 MG PO SCH (20:55)
[2019-01-06] MEDS: Nicotine Patch Removal NOTE FOLLOW UP SCH ×2 (03:00→22:04)
[2019-01-06] MEDS: Nicotine PATCH 21 MG/24 HR* PATCH TRANSDERM SCH (08:45)
[2019-01-06] MEDS: Nicotine Inhaler* 10 MG AMP INH PRN (08:46)
[2019-01-06] MEDS: Acetaminophen TAB* 325 MG PO PRN (08:46)
[2019-01-06] MEDS: Multivitamins/Minerals TAB PO SCH (08:47)
[2019-01-06] MEDS: Divalproex DR TAB(*) 500 MG PO SCH ×2 (08:47→20:28)
--- NOTE | 2019-01-06 16:16 | PN ---
Subjective - Subjective Date of Service: 01/06/19 Service Type: 93403 Family Medical Psyc Subjective: We had a fairly intense family meeting with Gigi and his parents, Jerry and Teetee Eddy, along with unit JENNIFFER Briceño. Kenny continues to insist that he is not suicidal. He is future-oriented in the sense that he's agreeable with the resumption of outpatient MH treatment, anger management, Alcoholics Anonymous and couples therapy with his girlfriend Carlita. Despite this he continues to vent a lot of anger towards the unit for receiving IM medication yesterday and seems to not take much responsibility for his role in that episode, which is documented elsewhere in this chart. Numerous times during the meeting he also directs antipathy towards his mother, who, similar to the patient, has an intellectual and sardonic style. He blames them, or more specifically her, for misparenting him. Several times the conversation becomes heated with raised voices, tears and hurt feelings. There seems to be agreement that Kenny needs both MH and substance abuse aftercare, however, the patient insists on receiving it on his own terms, which it seems his parents would be fine with were it not for his history of dangerous behavior. This clinician did take the opportunity to explain the rationale behind Kenny's change in diagnosis to Bipolar II, and the related changes in his medications. Gigi seems angry toward this observer and ill-served, not necessarily accepting the bipolar explanation. His parents do concur with the history of mood instability and failed previous treatment trials with numerous antidepressant therapies. His father in particular comments several times about how angry Gigi has been, even just prior to admission. We leave the meeting with the understanding that Kenny will not be discharged today, but we will have a second family meeting tomorrow with his fiance, Carlita ([phone]), at 11:00. He is quite upset about not going home. Objective - General Observations Appearance: Well Groomed Appears Stated Age: No Stature: WNL Posture: WNL Eye Contact: Average Behavior/Activity: WNL - Interaction Observations Attitude Towards Examiner: Hostile Stated Mood: Dysphoric Affect: Restricted Speech Pattern/Tone: Clear Thought Process: Coherent Perception: WNL Thought Content: WNL Hallucination Type: None Delusion Type: None - Cognitive Function Orientation: A&O x 4 Level of Consciousness: Awake Cognition: WNL Estimated Intelligence: Normal Insight: WNL Judgment Within Normal Limits: No - Medication Compliance Cooperative with Inpatient Medication Regimen: Yes - Group Participation Participates in Group Activities: No Assessment - Assessment Merits Inpatient Hospitalization: For Immediate Safety, For Stabilization Inpatient DSM-V Dx: F31.81 Clinical Impression: 33 y.o. single, white male with a history of mood instability and drug and alcohol dependence transferred from the hospitalist service following an intentional suicidal overdose on bupropion and hydroxyzine. BSU: Problem List - Patient Problems (1) Bipolar 2 disorder Current Visit: Yes Status: Acute Priority: High Code(s): F31.81 - BIPOLAR II DISORDER SNOMED Code(s): 51726848 Plan - Plan Treatment Plan: Name: GIGI EDDY Birthdate: 1985 [id number] The patient meets criteria for bipolar type II. We are treating him with Depakote 500mg PO BID and quetiapine 100mg PO qhs. Family meeting with sherri tomorrow at 11:00. Continue inpatient treatment. Continued Medication Management: Different Medication Medications: Current Medications Acetaminophen (Tylenol Tab*) 650 mg PO Q4H PRN PRN Reason: FEVER/PAIN Last Admin: 01/06/19 08:46 Dose: 650 mg Al Hydrox/Mg Hydrox/Simethicone (Maalox Plus*) 30 ml PO Q6H PRN PRN Reason: INDIGESTION Chlorpromazine HCl (Thorazine Tab*) 50 mg PO Q6H PRN PRN Reason: AGITATION Last Admin: 01/05/19 20:55 Dose: 50 mg Chlorpromazine HCl (Thorazine Inj*) 100 mg IM ONCE PRN PRN Reason: IF PT REFUSES PO Divalproex Sodium (Depakote Dr Tab(*)) 500 mg PO BID [facility] Last Admin: 01/06/19 08:47 Dose: 500 mg Multivitamins/Minerals (Theragran/Minerals Tab*) 1 tab PO DAILY [facility] Last Admin: 01/06/19 08:47 Dose: 1 tab Nicotine (Nicotine Inhaler*) 10 mg INH Q2H PRN PRN Reason: CRAVING Last Admin: 01/06/19 08:46 Dose: 10 mg Nicotine (Nicotine Patch 21 Mg/24 Hr*) 1 patch TRANSDERM DAILY [facility] Last Admin: 01/06/19 08:45 Dose: 1 patch Nicotine Polacrilex (Nicotine Gum*) 2 mg PO Q2H PRN PRN Reason: CRAVING Pharmacy Profile Note (Nicotine Patch Removal Note*) 1 note FOLLOW UP 2100 [facility] Last Admin: 01/06/19 03:00 Dose: 1 note Quetiapine Fumarate (Seroquel Tab*) 100 mg PO BEDTIME [facility] Last Admin: 01/05/19 20:55 Dose: 100 mg - Discharge Plan Discharge Plan: Inpatient Hospitalization
[2019-01-07 08:57] VITALS: BP 112/61
[2019-01-07] MEDS: Nicotine PATCH 21 MG/24 HR* PATCH TRANSDERM SCH (08:58)
[2019-01-07] MEDS: Divalproex DR TAB(*) 500 MG PO SCH (09:00)
[2019-01-07] MEDS: Nicotine Inhaler* 10 MG AMP INH PRN (09:00)
[2019-01-07] MEDS: Multivitamins/Minerals TAB PO SCH (09:00)
--- NOTE | 2019-01-07 11:15 | PN ---
BSU: Group Therapy Note - Service Type Service Type: [id number] Group Psychotherapy - Cognitive Behavioral Group Therapy ( CBT):Patient was attentive and participatory in CBT programming this morning, and remained in good behavioral control. Patient expressed positive insights regarding relevant treatment interventions and goals.
--- NOTE | 2019-01-07 13:40 | DS ---
DISCHARGE SUMMARY: DATE OF ADMISSION: 01/03/19 DATE OF DISCHARGE: 01/07/19 DISCHARGE DIAGNOSES: [place] I: Bipolar disorder, type 2; alcohol use disorder. [place] II: Deferred. CONDITION AT THE TIME OF DISCHARGE: Jeffery is calm, cooperative. He has tolerated family meetings on 2 successive days with his parents and with his fiancee. He has been safe on all checks for the past 48 hours and he has consistently denied suicidal thoughts or plans for the duration of this hospitalization. The patient has a good follow up plan in place. He is very much agreeable not only with treatment at the [facility], but also at the [facility]. He is agreeable with discontinuing any use of alcohol. He is tolerating his mood stabilizer medication quite well. Both his valeria and his parents are agreeable with the discharge plan. Jeffery appears to be doing much better, and we see no barriers to him receiving definitive care in the community. MENTAL STATUS EXAMINATION AT THE TIME OF DISCHARGE: The patient is a young white male with hair that is long in the middle and shaved on the sides which is up in a ponytail. He has diaz. He is casually dressed in the sweater and sweat pants, sitting upright in his chair, making good eye contact. He is calm , cooperative, easy to establish a rapport with. Speech is fluent with normal rate, tone, and volume and expressive, expansive vocabulary. Mood is euthymic with a full affect. Thought process is linear and goal directed. Thought content is significant for his desire to be discharged from the hospital. He is denying suicidal or homicidal ideations. He denies auditory or visual hallucinations. Insight and judgment appear to be fair given his willingness to follow up with treatment as an outpatient. Cognitively, he is awake and alert with what would appear to be a high average intellect based on his vocabulary. DISCHARGE INSTRUCTIONS TO THE PATIENT: A. Medications: He is on Depakote 500 mg p.o. b.i.d. B. Diet is regular. C. Activities: As tolerated. The patient is a chronic every day smoker, however, he is declining the offer of continued nicotine replacement therapy. In the event that he changes his mind and would like to quit, he is given the [facility] Smokers' Quitline, which is toll-free number of [phone]. There are no laboratory or diagnostic studies pending at the time of discharge. D. Followup care: The patient will follow up at the [facility] on 01/13/19, at 1 o'clock p.m. E. Substance abuse followup: The patient will followup at the [facility] on 01/08/19 at 12:30 p.m. HOSPITAL COURSE: Part A: Reason for admission: The patient is a 33-year-old single white male with a dual-diagnosis history of polysubstance abuse as well as recurrent depressive disorder, who is well known to this clinician from a brief psychiatric admission in mid-July of 2018, who now returns to the hospital following an intentional overdose on 9 tablets of Wellbutrin and 7 to 9 tablets of hydroxyzine. He was brought in by the police and while in the triage area suffered a seizure. From there, he was admitted to the hospitalist service. Apparently, he had told some staff members on the 4th floor that this was simply an attempt to get high; however, upon my examination, he admitted to me that it was a formal suicide attempt. He was quoted as stating "I did a cost -benefit analysis and on the whole, I feel like everything would be better if I just wasn't here." When asked about the precipitating events leading to this suicide attempt, he states that things have been kristan between him and his live- in girlfriend for several months. Apparently, he relapsed on alcohol a few months ago and then relapsed again approximately 1 week ago following the of one of his friends' mothers. This upset his girlfriend greatly. In addition , he has been in conflict with his ex- girlfriend, who is the mother of his 6- year-old daughter. In addition, his Medicaid had lapsed due to failure to submit new paperwork and therefore, he stopped going to his therapy and med management appointments at the [facility]. He denied other recent abusive drugs. Symptomatically, he was endorsing depression as well as poor sleep, anhedonia, guilt, decreased energy, as well as poor concentration. He was denying appetite disturbance or psychomotor retardation. Part B: Psychiatric treatment rendered: The patient was transferred from the medical service after being medically cleared. Due to the fact that he endorsed cyclic mood instability with discrete periods of hypomanic functioning including symptoms of increased goal directedness, decreased need for sleep, increased irritability, and racing thoughts, we felt that he warranted a rediagnosis with bipolar type 2. He was started on a trial of Depakote 500 mg p.o. b.i.d. and his mirtazapine and Wellbutrin were discontinued. While on the psychiatric unit, Jeffery became very discouraged, upset, demanding discharge. He was initially not agreeing with his diagnoses or changes in treatment. He did act out on 2 separate occasions, first he was able to be managed with supportive redirection as well as oral Thorazine; on the second occasion which was 01/05/19, he was increasingly agitated, destructive to hospital property, punching matute and threatening staffs, verbal deescalation techniques were applied but were unsuccessful and ultimately, he received involuntary stat intramuscular Thorazine along with brief manual restraint. Thereafter, the patient was angry at the hospital demanding discharge. We had an initial family meeting on 01/06/19, attended by his parents Jerry and Teetee Wells in which there was high degree of affect in the room with both the patient and his mother in particular trading barbs and being argumentative with each other. Despite his disappointment of not being able to be discharged that day, he was in good behavior the rest of that day and stated that he felt the Depakote was kicking in and actually benefiting him. Thereafter, we were able to have a second meeting on the 01/07/19, this was also attended by his parents, but in addition his fiancee, Carlita Paredes, was able to also participate. Jeffery was quite calm and in control and overall this was an extremely productive supportive meeting. It was decided that Jeffery would return to treatment at the [facility], now that his Medicaid has been reactivated, he is also agreeable with treatment at the [facility] as well as pursuing Alcoholics Anonymous meetings in the community. We also recommended family therapy and his mother is working on setting up a licensed marital and family therapist in [place] where she resides, who can provide sessions over video conferencing. Both the patient and his fiancee were also willing to pursue couples counseling in the community after discharge. At this time, Jeffery seems back to his baseline, in fact he is doing quite a bit better. His mood is euthymic and his family is agreeing that they feel safe having him discharged. He has follow up appointments in place and he is agreeable with seeing counselors as well as taking medications. I see no further barriers to his discharge at this time. [id number]/CPS #: [id number] LV
[2019-01-07 14:12] LABS: HDL Cholesterol 46.5 mg/dL
== END 2019-01-07 12:34 | disposition home or self-care (01) | DRG 812 ==
LOC: ED 23:53 → OBSVTOIN 01-03 02:14 → MEDTELE 01-03 02:14 → BSU 01-03 16:15
PROVIDERS: ADMIT Pediatrics; ATTEND Psychiatry & Neurology Psychiatry
PROC: 4A00X4Z Measurement of Central Nervous Electrical Activity, External Approach (ICD-10-PCS; principal; 2019-01-03)
PROC: GZHZZZZ Group Psychotherapy (ICD-10-PCS; 2019-01-07)
DX: T43.292A Poisoning by other antidepressants, intentional self-harm, initial encounter (principal); F31.81 Bipolar II disorder; N17.9 Acute kidney failure, unspecified; E87.2 Acidosis; M62.82 Rhabdomyolysis; T43.592A Poisoning by other antipsychotics and neuroleptics, intentional self-harm, initial encounter; F41.9 Anxiety disorder, unspecified; F41.0 Panic disorder [episodic paroxysmal anxiety]; F90.9 Attention-deficit hyperactivity disorder, unspecified type; R56.9 Unspecified convulsions; F13.10 Sedative, hypnotic or anxiolytic abuse, uncomplicated; K21.9 Gastro-esophageal reflux disease without esophagitis; F17.210 Nicotine dependence, cigarettes, uncomplicated; F10.10 Alcohol abuse, uncomplicated; Y90.9 Presence of alcohol in blood, level not specified; Z91.5 Personal history of self-harm; Z88.0 Allergy status to penicillin; Y92.9 Unspecified place or not applicable; Z88.8 Allergy status to other drugs, medicaments and biological substances
CPT/HCPCS: 36415; 80053; 80061; 80164; 80307; 80320; 80329; 81003; 81015; 82550; 83036; 83605; 83735; 84443; 85025; 90847; 90853; 93005; 95819; 99222; 99231; 99238; 99285; A9270-GY; G0480; J1953; J2060; J3475

== ENCOUNTER 2019-10-15 09:34 | Emergency (ER) | payer SELFPAY ==
--- NOTE | 2019-10-15 10:27 | ED ---
Abdominal Pain/Male - HPI Summary HPI Summary: 34 y/o male presented to [facility] complaining of sharp, intermittent RUQ pain appearing in episodes that occur roughly ever 15 minutes and began this morning at 0830 while the pt was eating a breakfast bar. The pain does not radiate to any other location and the pt states he has been urinating frequently. Pt notes no acute CP, fever, vomiting, hematuria or bloody stool. He has had irregular CP for the past couple of months and notes no Hx of abd surgery, renal calculi, gallstones, liver problems, ulcers, pancreatitis, or hepatitis. He has a Hx of substance abuse and notes that recently when he has consumed alcohol he has felt pain and pressure greater than anything associated with a normal hangover. He has 3-4 drinks of alcohol once a week, quit tobacco 1 month ago and is on a patch, and is currently on no medications but has been on antidepressants in the past. He is currently on the dietary supplement Kratom and notes that he recently found out this supplement can lead to liver complications. - History of Current Complaint Chief Complaint: EDAbdPain Stated Complaint: RIGHT ABD PAIN Time Seen by Provider: 10/15/19 10:03 Hx Obtained From: Patient Onset/Duration: Sudden Onset, Still Present Timing: Intermittent - every 15 min Severity Currently: Mild Pain Intensity: 2 Pain Scale Used: 0-10 Numeric Location: Discrete At: RUQ Radiates to: Other - does not radiate Character: Sharp Aggravating Factor(s): Nothing Alleviating Factor(s): Nothing Associated Signs And Symptoms: Negative: Fever, Chest Pain, Blood in Stool, Urinary Symptoms, Vomiting - Allergies/Home Medications Allergies/Adverse Reactions: Allergies Allergy/AdvReac Type Severity Reaction Status Date / Time cefaclor [From [facility]] Allergy Anaphylatic Verified 10/15/19 09:39 Shock Penicillins Allergy Anaphylatic Verified 10/15/19 09:39 Shock Home Medications: Home Medications Ascorbic Acid TAB* [Vitamin C TAB*] 500 mg PO DAILY 10/15/19 [History Confirmed 10/15/19] Biotin 1 mg PO DAILY 10/15/19 [History Confirmed 10/15/19] Cholecalciferol CAP/TAB(NF) [Vitamin D3 CAP/TAB (NF)] 5,000 unit PO DAILY [History Confirmed 10/15/19] Cyanocobalamin TAB* [Vitamin B12 TAB*] 500 mcg PO DAILY 10/15/19 [History Confirmed 10/15/19] Kratom 1 dose PO DAILY 10/15/19 [History Confirmed 10/15/19] Keene-3 Fatty Acids (Nf) [Fish Oil (NF)] 1,000 mg PO DAILY 10/15/19 [History Confirmed 10/15/19] Turmeric 400 mg PO DAILY 10/15/19 [History Confirmed 10/15/19] PMH/Surg Hx/FS Hx/Imm Hx Cardiovascular History: Denies: Hx Hypotension GI History: Reports: Other GI Disorders - Acid reflux Sensory History: Reports: Other Sensory Impairments - intermittent numbess/ tingling throughout Denies: Hx Cataracts, Hx Contacts or Glasses, Hx Eye Injury, Hx Eye Prosthesis, Hx Glaucoma, Hx Legally Blind, Hx Macular Degeneration, Hx Vision Problem, Hx Deafness, Hx Hearing Aid, Hx Hearing Problem Opthamlomology History: Reports: Other Sensory Impairments - intermittent numbess/tingling throughout Denies: Hx Cataracts, Hx Contacts or Glasses, Hx Eye Injury, Hx Eye Prosthesis, Hx Glaucoma, Hx Legally Blind, Hx Macular Degeneration, Hx Vision Problem Neurological History: Denies: Hx CVA, Hx Dementia Psychiatric History: Reports: Hx Anxiety, Hx Attention Deficit Hyperactivity Disorder, Hx Depression, Hx Panic Disorder, Hx Community Mental Health Tx, Hx Substance Abuse Denies: Hx Eating Disorder, Hx Inpatient Treatment, Hx Suicide Attempt, Hx of Violent Episodes Against Others - Surgical History Surgery Procedure, Year, and Place: [place] Teeth Extraction Infectious Disease History: No Infectious Disease History: Denies: Hx Clostridium Difficile, Hx Hepatitis, Hx Human Immunodeficiency Virus (HIV), Hx of Known/Suspected MRSA, Hx Shingles, Hx Tuberculosis, History Other Infectious Disease, Traveled Outside the [place] in Last 30 Days - Family History Known Family History: Negative: Respiratory Disease, Seizure Disorder - Social History Alcohol Use: Occasionally Alcohol Amount: 6 drinks Hx Substance Use: Yes Substance Use Type: Reports: None Substance Use Comment - Amount & Last Used: History of using heroin, opiates Hx Tobacco Use: Yes Smoking Status (MU): Former Smoker Type: Cigarettes Have You Smoked in the Last Year: Yes Review of Systems Negative: Fever Negative: Chest Pain - has had chronic CP recently but not currently present Positive: Abdominal Pain. Negative: Vomiting Negative: hematuria All Other Systems Reviewed And Are Negative: Yes Physical Exam - Summary Physical Exam Summary: Constitutional: Well-developed, Well-nourished, Alert. (-) Distressed Skin: Warm, Dry HENT: Normocephalic; Atraumatic Eyes: Conjunctiva normal Neck: Musculoskeletal ROM normal neck. (-) JVD, (-) Stridor, (-) Tracheal deviation Cardio: Rhythm regular, rate normal, Heart sounds normal; Intact distal pulses; The pedal pulses are 2+ and symmetric. Radial pulses are 2+ and symmetric. (-) Murmur Pulmonary/Chest wall: Effort normal. (-) Respiratory distress, (-) Wheezes, (-) Rales Abd: (+) tenderness in RUQ, (-) Distension, (-) Guarding, (-) Rebound Musculoskeletal: (-) Edema Lymph: (-) Cervical adenopathy Neuro: Alert, Oriented x3 Psych: Mood and affect Normal Triage Information Reviewed: Yes Vital Signs On Initial Exam: Initial Vitals Temp Pulse Resp BP Pulse Ox 97.7 F 82 16 143/77 99 10/15/19 09:35 10/15/19 09:35 10/15/19 09:35 10/15/19 09:35 10/15/19 09:35 Vital Signs Reviewed: Yes Procedures - Sedation Patient Received Moderate/Deep Sedation with Procedure: No Diagnostics - Vital Signs Vital Signs Temp Pulse Resp BP Pulse Ox 10/15/19 09:35 97.7 F 82 16 143/77 99 - Laboratory Result Diagrams: 10/15/19 10:26 10/15/19 10:26 Lab Statement: Any lab studies that have been ordered have been reviewed, and results considered in the medical decision making process. Abdominal Pain Male Course/Dx - Course Course Of Treatment: Patient presents with fairly local right upper quadrant abdominal pain, states she is concerned about his liver given history of substance abuse. His workup is essentially unremarkable. LFTs within normal limits. Ultrasound does not reveal any liver/biliary pathology. Patient reassured, complete discharge home, has PCP for follow-up. - Diagnoses Provider Diagnoses: Abdominal pain Discharge ED - Sign-Out/Discharge Documenting (check all that apply): Patient Departure - dc - Discharge Plan Condition: Stable Disposition: HOME Patient Education Materials: Abdominal Pain (ED) Referrals: Care [facility] [Outside] Additional Instructions: Follow up with your primary care physician in 1-3 days. If you experience new or worsening symptoms please return to the ER. - Billing Disposition and Condition Condition: STABLE Disposition: Home - Attestation Statements Scribe Documentation Reviewed: Yes
[2019-10-15 10:37] LABS: ABS Eosinophils 0.1 10^3/ul (0-0.6); ABS Lymphocytes 1.1 10^3/ul (1.0-4.8); ABS Monocytes 0.8 10^3/ul (0-0.8); Eosinophil % 0.8 %; Hematocrit 41 % (42-52); Hemoglobin 13.9 g/dL (14.0-18.0); Lymphocyte % 15.8 %; Mean Corpuscular HGB Conc 34 g/dL (31-36); Mean Corpuscular Hemoglobin 29 pg (27-31); Mean Corpuscular Volume 86 fL (80-94); Mean Platelet Volume 7.8 fL (7.4-10.4); Nucleated Red Blood Cells % 0.1; Platelet Count 291 10^3/uL (150-450); Red Blood Count 4.83 10^6 /uL (4.18-5.48); Red Cell Distribution Width 13 % (10-15)
[2019-10-15 10:53] LABS: Albumin 4.7 g/dL (3.2-5.2); Albumin/Globulin Ratio 1.6 (1-3); C Reactive Protein 1.22 mg/L (<8.01); Calcium 10.1 mg/dL (8.6-10.3); EGFR African American 123.9 (>60); EGFR Non-African American 102.4 (>60); Potassium 4.4 mmol/L (3.5-5.0); Total Bilirubin 0.4 mg/dL (0.2-1.0); Total Protein 7.7 g/dL (6.4-8.9)
[2019-10-15 14:23] VITALS: BP 114/68
[2019-10-16 15:48] LABS: HIV 4th Generation Nonreactive (Nonreactive)
== END 2019-10-15 13:30 | disposition home or self-care (01) ==
LOC: ED 09:34
DX: R10.9 Unspecified abdominal pain (principal); F41.9 Anxiety disorder, unspecified; F90.9 Attention-deficit hyperactivity disorder, unspecified type; F32.9 Major depressive disorder, single episode, unspecified; Z87.891 Personal history of nicotine dependence; Z79.899 Other long term (current) drug therapy; Z88.0 Allergy status to penicillin; Z88.1 Allergy status to other antibiotic agents
CPT/HCPCS: 36415; 76705; 80053; 83690; 85025; 86140; 87389; 99283